=== PATIENT | male | born 1945 | race Caucasian/White ===

== ENCOUNTER 2017-10-11 11:28 | Inpatient (IN) | payer MEDICARE, OTHER ==
[2017-10-11 12:04] LABS: AADO2 Arterial 42.6 mmHg (7.0-24.0); Allen Test ACCEPTAB; Arterial Base Excess 15.5 mmol/L (-3.0-3); Arterial Blood Gas Oxygen Sat 93.8 mmHG (95.0-100.0); Arterial Fraction of Oxyhgb 92.6 % (93.0-99.0); Arterial HCO3 44.7 mmol/L (22.0-26.0); Arterial MetHb 0.3 % (0.0-1.5); Arterial pCO2 83.2 mmhg (35-45); Blood Gas IEPAP 20/5; Blood Gas PS 15; MODE MASK - BIPAP; Site Left Radial
[2017-10-11 12:10] LABS: HEMATOCRIT 35.9 % (42.0-52.0); HEMOGLOBIN 10.8 g/dl (14.0-18.0); MEAN CORPUSCULAR HEMOGLOBIN 30.5 pg (29.0-33.0); MEAN CORPUSCULAR HGB CONC 30.1 g/dl (32.0-37.0); MEAN CORPUSCULAR VOLUME 101.4 fl (82.0-101.0); MEAN PLATELET VOLUME 10.9 fl (7.4-10.4); PLATELET COUNT 152 10^3/UL (140-415); POSITIVE DIFF @See below; RED BLOOD COUNT 3.54 10^6/ul (4.70-6.10); RED CELL DISTRIBUTION WIDTH 15.7 % (11.5-14.5)
[2017-10-11 12:10] LABS: WHITE BLOOD COUNT 8.1 10^3/ul (4.8-10.8)
[2017-10-11 12:19] LABS: ADD MAN DIFF? YES
[2017-10-11] MEDS: SODIUM CHLORIDE 0.9% 1L BAG IV* (12:32)
[2017-10-11 12:47] LABS: ANISOCYTOSIS 2+ (0-0); EOSINOPHILS % (M) 5 % (0-7); LYMPHOCYTES #M 1.2 10^3/ul (0.8-2.9); LYMPHOCYTES % (M) 16 % (15-51); PLATELET ESTIMATE NORMAL; SEGMENTED NEUTROPHILS (M) % 79 % (39-77); SMUDGE%M 1 % (0-0)
[2017-10-11] MEDS: HYDROCODONE/APAP (5/325) TAB PO ×2 (13:03→20:56)
[2017-10-11 13:09] LABS: ALANINE AMINOTRANSFERASE 32 IU/L (13-69); ALBUMIN 3.8 g/dl (3.3-4.9); ALBUMIN/GLOBULIN RATIO 1.11; ALKALINE PHOSPHATASE 75 IU/L (42-121); ASPARTATE AMINO TRANSFERASE 29 IU/L (15-46); BILIRUBIN,INDIRECT 0.3 mg/dl (0-1.1); BILIRUBIN,TOTAL 0.3 mg/dl (0.2-1.3); BLOOD UREA NITROGEN 44 mg/dl (7-20); CALCIUM 9.5 mg/dl (8.4-10.2); CHLORIDE 88 mmol/L (97-110); CREATININE 1.55 mg/dl (0.61-1.24); GLUCOSE 121 mg/dl (70-220); LIPASE 105 U/L (23-300); POTASSIUM 4.6 mmol/L (3.5-5.1); SODIUM 142 mmol/L (135-144); TOTAL PROTEIN 7.2 g/dl (6.1-8.1)
[2017-10-11 13:21] LABS: ANION GAP 15 (8-16); CARBON DIOXIDE 44 mmol/L (21-31)
[2017-10-11 13:29] LABS: LACTIC ACID 1.8 mmol/L (0.5-2.0)
[2017-10-11 13:35] LABS: B-TYPE NATRIURETIC PEPTIDE 393 PG/ML (0-125)
[2017-10-11 13:36] LABS: TROPONIN-I 0.834 ng/ml (0.00-0.12)
[2017-10-11] MEDS: ASPIRIN 81 MG TAB PO (13:52)
[2017-10-11] MEDS ORDERED: NITROGLYCERIN (SL) 0.4 MG TAB SL (16:00)
[2017-10-11] MEDS ORDERED: NACL 0.9% 3 ML SYG IV (16:00)
[2017-10-11] MEDS ORDERED: NORepinephrine 8MG/250 ML (PMX 250 ML (16:43)
[2017-10-11] MEDS: NORepinephrine 8MG/250 ML (PMX 250 ML IV (16:56)
[2017-10-11 17:30] LABS: LACTIC ACID 1.2 mmol/L (0.5-2.0)
[2017-10-11 17:30] LABS: CREATINE KINASE 94 IU/L (23-200)
[2017-10-11 17:43] LABS: CK-MB 8.46 ng/ml (0.0-2.4)
[2017-10-11] MEDS: SOD CHLORIDE 0.9% 1,000 ML IV (17:58)
[2017-10-11 18:00] LABS: ADD UMIC YES; UR ASCORBIC ACID NEGATIVE (NEGATIVE); UR BACTERIA MANY /HPF (NONE SEEN); UR BILIRUBIN (Dip) 1+ mg/dL (NEGATIVE); UR BLOOD (Dip) 3+ mg/dL (NEGATIVE); UR CLARITY CLOUDY (CLEAR); UR COLOR AMBER (YELLOW); UR GLUCOSE (Dip) NEGATIVE (NEGATIVE); UR KETONES (Dip) NEGATIVE (NEGATIVE); UR LEUKOCYTE ESTERASE (Dip) 3+ Leu/ul (NEGATIVE); UR NITRITE (Dip) NEGATIVE (NEGATIVE); UR RBC > 182 /HPF (0-5); UR SPECIFIC GRAVITY (Dip) 1.019 (1.003-1.030); UR TOTAL PROTEIN (Dip) 1+ mg/dl (NEGATIVE); UR UROBILINOGEN (Dip) 2+ mg/dL (NEGATIVE); UR WBC > 182 /HPF (0-5)
[2017-10-11] MEDS ORDERED: LEVOFLOXACIN 750MG/D5W (PMX) 150 ML IVPB (18:16)
[2017-10-11] MEDS: LEVOFLOXACIN 750MG/D5W (PMX) 150 ML IVPB (18:17)
[2017-10-11] MEDS: HEPARIN 5,000 UNIT/0.5 ML VIAL SC (20:40)
[2017-10-11] MEDS: LACTATED RINGER'S 500 ML IV (22:00)
[2017-10-11 22:22] LABS: CREATINE KINASE 108 IU/L (23-200)
[2017-10-11 22:30] LABS: LACTIC ACID 1.5 mmol/L (0.5-2.0)
[2017-10-11 22:35] LABS: CK INDEX 9.8
[2017-10-11] MEDS: PIPER-TAZO 3.375 GM IV (PMX) 100 ML IVPB (23:20)
[2017-10-12] MEDS: ZOLPIDEM 5 MG TAB PO ×2 (00:31→22:30)
[2017-10-12] MEDS: PANTOPRAZOLE (EC) 40 MG TAB PO (06:25)
[2017-10-12] MEDS: SOD CHLORIDE 0.9% 1,000 ML IV ×2 (06:30→17:35)
[2017-10-12 07:44] LABS: Allen Test ACCEPTAB; Arterial Base Excess 10.2 mmol/L (-3.0-3); Arterial Blood Gas Oxygen Sat 96.7 mmHG (95.0-100.0); Arterial COHb 0.5 % (0.0-3.0); Arterial Fraction of Oxyhgb 96.1 % (93.0-99.0); Arterial HCO3 38.9 mmol/L (22.0-26.0); Arterial MetHb 0.1 % (0.0-1.5); Arterial Total Hemglobin 10.9 g/dl (12.0-18.0); Arterial pCO2 79.3 mmhg (35-45); Blood Gas IEPAP 16/6; MODE MASK - BIPAP; Site Left Radial
[2017-10-12] MEDS: HEPARIN 5,000 UNIT/0.5 ML VIAL SC ×2 (09:01→22:40)
[2017-10-12] MEDS: ASPIRIN 81 MG TAB PO (09:01)
[2017-10-12 10:23] LABS: ADD MAN DIFF? NO
[2017-10-12 10:28] LABS: ABNORMAL IP MESSAGE 1; EOSINOPHILS # 0.2 10^3/ul (0.0-0.5); EOSINOPHILS % 3.8 % (0.0-7.0); HEMATOCRIT 32.8 % (42.0-52.0); HEMOGLOBIN 9.8 g/dl (14.0-18.0); LYMPHOCYTES # 0.6 10^3/ul (0.8-2.9); LYMPHOCYTES % 11.8 % (15.0-51.0); MEAN CORPUSCULAR HEMOGLOBIN 30.4 pg (29.0-33.0); MEAN CORPUSCULAR HGB CONC 29.9 g/dl (32.0-37.0); MEAN CORPUSCULAR VOLUME 101.9 fl (82.0-101.0); MEAN PLATELET VOLUME 10.8 fl (7.4-10.4); MONOCYTE # 0.4 10^3/ul (0.3-0.9); NEUTROPHIL # 3.8 10^3/ul (1.6-7.5); NEUTROPHILS % 77.2 % (39.0-77.0); PLATELET COUNT 115 10^3/UL (140-415); POSITIVE DIFF @See below; RED BLOOD COUNT 3.22 10^6/ul (4.70-6.10); RED CELL DISTRIBUTION WIDTH 15.6 % (11.5-14.5)
[2017-10-12 12:13] LABS: ALANINE AMINOTRANSFERASE 51 IU/L (13-69); ALBUMIN 3.1 g/dl (3.3-4.9); ALBUMIN/GLOBULIN RATIO 1.06; ALKALINE PHOSPHATASE 75 IU/L (42-121); ASPARTATE AMINO TRANSFERASE 48 IU/L (15-46); BILIRUBIN,INDIRECT 0.1 mg/dl (0-1.1); BILIRUBIN,TOTAL 0.1 mg/dl (0.2-1.3); BLOOD UREA NITROGEN 33 mg/dl (7-20); CALCIUM 8.7 mg/dl (8.4-10.2); CHLORIDE 97 mmol/L (97-110); CREATININE 0.76 mg/dl (0.61-1.24); GLUCOSE 91 mg/dl (70-220); POTASSIUM 4.2 mmol/L (3.5-5.1); SODIUM 142 mmol/L (135-144)
[2017-10-12 12:20] LABS: ANION GAP 9 (8-16)
[2017-10-12 12:22] LABS: CARBON DIOXIDE 40 mmol/L (21-31)
[2017-10-12] MEDS: HYDROCODONE/APAP (5/325) TAB PO (17:34)
[2017-10-12] MEDS: LEVOFLOXACIN 500MG/D5W (PMX) 100 ML IVPB (17:34)
[2017-10-12] MEDS: ACETAMINOPHEN 325 MG TAB PO (22:28)
[2017-10-12] MEDS: ATORVASTATIN 40 MG TAB PO (22:30)
[2017-10-12] MEDS: VANCOMYCIN 2 GM in DEXTROSE 5% 500 ML IVPB (23:50)
[2017-10-12] MEDS ORDERED: VANCOMYCIN IV PER PHARMACY XX (23:59)
[2017-10-13] MEDS: HYDROCODONE/APAP (5/325) TAB PO ×4 (00:37→20:36)
[2017-10-13 05:23] LABS: Allen Test ACCEPTAB; Arterial Base Excess 14.4 mmol/L (-3.0-3); Arterial Blood Gas Oxygen Sat 97.3 mmHG (95.0-100.0); Arterial COHb 0.5 % (0.0-3.0); Arterial Fraction of Oxyhgb 96.8 % (93.0-99.0); Arterial HCO3 41.4 mmol/L (22.0-26.0); Arterial MetHb 0 % (0.0-1.5); Arterial Total Hemglobin 11.3 g/dl (12.0-18.0); Arterial pCO2 65.2 mmhg (35-45); Blood Gas IEPAP 16/6; Blood Gas PS 10; MODE MASK - BIPAP; Site Right Radial
[2017-10-13] MEDS: PANTOPRAZOLE (EC) 40 MG TAB PO (06:55)
[2017-10-13 07:45] LABS: ADD MAN DIFF? NO
[2017-10-13 07:53] LABS: BASOPHILS % 0.2 % (0.0-2.0); EOSINOPHILS # 0.2 10^3/ul (0.0-0.5); EOSINOPHILS % 4.7 % (0.0-7.0); HEMATOCRIT 30.9 % (42.0-52.0); HEMOGLOBIN 9.5 g/dl (14.0-18.0); LYMPHOCYTES # 0.8 10^3/ul (0.8-2.9); LYMPHOCYTES % 18.1 % (15.0-51.0); MEAN CORPUSCULAR HEMOGLOBIN 30.6 pg (29.0-33.0); MEAN CORPUSCULAR HGB CONC 30.7 g/dl (32.0-37.0); MEAN CORPUSCULAR VOLUME 99.7 fl (82.0-101.0); MEAN PLATELET VOLUME 10.8 fl (7.4-10.4); MONOCYTE # 0.4 10^3/ul (0.3-0.9); MONOCYTES % 8.9 % (0.0-11.0); NEUTROPHIL # 2.9 10^3/ul (1.6-7.5); NEUTROPHILS % 67.6 % (39.0-77.0); PLATELET COUNT 106 10^3/UL (140-415); RED CELL DISTRIBUTION WIDTH 15.5 % (11.5-14.5)
[2017-10-13 07:53] LABS: WHITE BLOOD COUNT 4.3 10^3/ul (4.8-10.8)
[2017-10-13 08:19] LABS: ALANINE AMINOTRANSFERASE 48 IU/L (13-69); ALBUMIN 2.9 g/dl (3.3-4.9); ALBUMIN/GLOBULIN RATIO 1.26; ALKALINE PHOSPHATASE 68 IU/L (42-121); ANION GAP 8 (8-16); ASPARTATE AMINO TRANSFERASE 30 IU/L (15-46); BILIRUBIN,INDIRECT 0.2 mg/dl (0-1.1); BILIRUBIN,TOTAL 0.2 mg/dl (0.2-1.3); BLOOD UREA NITROGEN 24 mg/dl (7-20); CALCIUM 8.6 mg/dl (8.4-10.2); CARBON DIOXIDE 39 mmol/L (21-31); CHLORIDE 98 mmol/L (97-110); CREATININE 0.62 mg/dl (0.61-1.24); GLUCOSE 85 mg/dl (70-220); POTASSIUM 4.1 mmol/L (3.5-5.1); SODIUM 141 mmol/L (135-144); TOTAL PROTEIN 5.2 g/dl (6.1-8.1)
[2017-10-13] MEDS: ASPIRIN 81 MG TAB PO (09:25)
[2017-10-13] MEDS: HEPARIN 5,000 UNIT/0.5 ML VIAL SC ×2 (09:28→20:48)
[2017-10-13] MEDS: SOD CHLORIDE 0.9% 1,000 ML IV ×2 (09:31→20:00)
[2017-10-13] MEDS: ASCORBIC ACID 500 MG TAB PO ×2 (12:11→20:36)
[2017-10-13] MEDS: MULTIVIT/CA CARB/B CMPLX/FA TAB PO (12:11)
[2017-10-13] MEDS: ERTAPENEM SODIUM 1 GM in SOD CHLORIDE 0.9% 100 ML IVPB (12:11)
[2017-10-13] MEDS: ZINC SULFATE 220 MG CAP PO (12:14)
[2017-10-13] MEDS: VANCOMYCIN 2 GM in DEXTROSE 5% 500 ML IVPB (12:42)
[2017-10-13] MEDS: ATORVASTATIN 40 MG TAB PO (20:36)
[2017-10-13] MEDS: METOPROLOL 25 MG TAB PO (20:38)
[2017-10-13] MEDS: ZOLPIDEM 5 MG TAB PO (22:58)
[2017-10-13] MEDS: ACETAMINOPHEN 325 MG TAB PO (22:58)
[2017-10-14] MEDS: VANCOMYCIN 2 GM in DEXTROSE 5% 500 ML IVPB (00:20)
[2017-10-14] MEDS: SOD CHLORIDE 0.9% 1,000 ML IV ×2 (01:34→21:00)
[2017-10-14] MEDS: HYDROCODONE/APAP (5/325) TAB PO ×4 (04:13→23:10)
[2017-10-14 05:16] LABS: AADO2 Arterial 15.7 mmHg (7.0-24.0); Allen Test ACCEPTAB; Arterial COHb 0.4 % (0.0-3.0); Arterial Fraction of Oxyhgb 96.5 % (93.0-99.0); Arterial HCO3 40.1 mmol/L (22.0-26.0); Arterial MetHb 0.1 % (0.0-1.5); Arterial Total Hemglobin 10.9 g/dl (12.0-18.0); Arterial pCO2 73.9 mmhg (35-45); MODE NASAL CANNULA; Site Right Radial
[2017-10-14] MEDS: PANTOPRAZOLE (EC) 40 MG TAB PO (06:39)
[2017-10-14] MEDS: ASCORBIC ACID 500 MG TAB PO ×2 (08:15→22:00)
[2017-10-14] MEDS: ZINC SULFATE 220 MG CAP PO (08:15)
[2017-10-14] MEDS: ASPIRIN 81 MG TAB PO (08:15)
[2017-10-14] MEDS: MULTIVIT/CA CARB/B CMPLX/FA TAB PO (08:16)
[2017-10-14] MEDS: METOPROLOL 25 MG TAB PO (08:17)
[2017-10-14] MEDS: HEPARIN 5,000 UNIT/0.5 ML VIAL SC ×2 (08:18→22:10)
[2017-10-14 09:08] LABS: ADD MAN DIFF? NO
[2017-10-14 09:10] LABS: BASOPHILS % 0.4 % (0.0-2.0); EOSINOPHILS # 0.2 10^3/ul (0.0-0.5); EOSINOPHILS % 4.2 % (0.0-7.0); HEMATOCRIT 33.7 % (42.0-52.0); HEMOGLOBIN 10.4 g/dl (14.0-18.0); LYMPHOCYTES # 0.7 10^3/ul (0.8-2.9); LYMPHOCYTES % 14.5 % (15.0-51.0); MEAN CORPUSCULAR HEMOGLOBIN 30.7 pg (29.0-33.0); MEAN CORPUSCULAR HGB CONC 30.9 g/dl (32.0-37.0); MEAN CORPUSCULAR VOLUME 99.4 fl (82.0-101.0); MEAN PLATELET VOLUME 10.4 fl (7.4-10.4); MONOCYTE # 0.4 10^3/ul (0.3-0.9); MONOCYTES % 9.2 % (0.0-11.0); NEUTROPHIL # 3.2 10^3/ul (1.6-7.5); NEUTROPHILS % 71.3 % (39.0-77.0); PLATELET COUNT 111 10^3/UL (140-415); RED BLOOD COUNT 3.39 10^6/ul (4.70-6.10)
[2017-10-14 09:10] LABS: WHITE BLOOD COUNT 4.5 10^3/ul (4.8-10.8)
[2017-10-14 09:35] LABS: ALANINE AMINOTRANSFERASE 39 IU/L (13-69); ALBUMIN 3.2 g/dl (3.3-4.9); ALBUMIN/GLOBULIN RATIO 1.06; ALKALINE PHOSPHATASE 76 IU/L (42-121); ASPARTATE AMINO TRANSFERASE 26 IU/L (15-46); BILIRUBIN,INDIRECT 0.2 mg/dl (0-1.1); BILIRUBIN,TOTAL 0.2 mg/dl (0.2-1.3); BLOOD UREA NITROGEN 13 mg/dl (7-20); CALCIUM 9.3 mg/dl (8.4-10.2); CHLORIDE 96 mmol/L (97-110); CREATININE 0.58 mg/dl (0.61-1.24); GLUCOSE 94 mg/dl (70-220); POTASSIUM 3.7 mmol/L (3.5-5.1); SODIUM 141 mmol/L (135-144); TOTAL PROTEIN 6.2 g/dl (6.1-8.1)
[2017-10-14 09:36] LABS: ANION GAP 9 (8-16)
[2017-10-14 09:45] LABS: CARBON DIOXIDE 39 mmol/L (21-31)
[2017-10-14 09:53] LABS: TROPONIN-I 0.623 ng/ml (0.00-0.12)
[2017-10-14] MEDS ORDERED: LOSARTAN 25 MG TAB PO (11:30)
[2017-10-14] MEDS: ERTAPENEM SODIUM 1 GM in SOD CHLORIDE 0.9% 100 ML IVPB (12:07)
[2017-10-14 12:15] LABS: Allen Test ACCEPTAB; Arterial Base Excess 12.4 mmol/L (-3.0-3); Arterial Blood Gas Oxygen Sat 99.1 mmHG (95.0-100.0); Arterial COHb 0.4 % (0.0-3.0); Arterial Fraction of Oxyhgb 98.5 % (93.0-99.0); Arterial HCO3 40.3 mmol/L (22.0-26.0); Arterial MetHb 0.2 % (0.0-1.5); Arterial Total Hemglobin 11.6 g/dl (12.0-18.0); Arterial pCO2 70.9 mmhg (35-45); MODE NASAL CANNULA; Site Left Radial
[2017-10-14] MEDS: SALMETEROL/FLUTICASONE 250/50 INHA INH ×2 (12:20→21:57)
[2017-10-14] MEDS: TIOTROPIUM 18 MCG CAPSULE INHA DEV INH (12:20)
[2017-10-14 12:24] LABS: VANCOMYCIN,TROUGH 21.1 ug/ml (10.0-20.0)
[2017-10-14] MEDS: DOXAZOSIN 1 MG TAB PO (12:26)
[2017-10-14] MEDS: LOSARTAN 50 MG TAB PO (12:30)
[2017-10-14] MEDS ORDERED: METOPROLOL 50 MG TAB PO (12:30)
[2017-10-14] MEDS: ACETAMINOPHEN 325 MG TAB PO (14:02)
[2017-10-14] MEDS: VANCOMYCIN 1.5 GM in DEXTROSE 5% 500 ML IVPB (18:48)
[2017-10-14] MEDS: METOPROLOL 50 MG TAB PO (21:00)
[2017-10-14] MEDS: DOXAZOSIN 2 MG TAB PO (21:00)
[2017-10-14] MEDS: NYSTATIN 30 GM POWDER BTL TOP (21:57)
[2017-10-14] MEDS: MONTELUKAST 10 MG TAB PO (21:59)
[2017-10-14] MEDS: ATORVASTATIN 40 MG TAB PO (22:00)
[2017-10-15] MEDS: LOSARTAN 50 MG TAB PO ×3 (01:13→21:54)
[2017-10-15] MEDS: SOD CHLORIDE 0.9% 1,000 ML IV ×2 (01:58→22:00)
[2017-10-15] MEDS: ACETAMINOPHEN 325 MG TAB PO ×3 (02:53→16:24)
[2017-10-15] MEDS: PANTOPRAZOLE (EC) 40 MG TAB PO (05:57)
[2017-10-15] MEDS: HYDROCODONE/APAP (5/325) TAB PO ×3 (05:58→21:53)
[2017-10-15] MEDS: VANCOMYCIN 1.5 GM in DEXTROSE 5% 500 ML IVPB ×2 (06:00→21:55)
[2017-10-15 08:38] LABS: ADD MAN DIFF? NO
[2017-10-15 08:55] LABS: ABNORMAL IP MESSAGE 1; BASOPHILS % 0.2 % (0.0-2.0); EOSINOPHILS # 0.2 10^3/ul (0.0-0.5); EOSINOPHILS % 3.9 % (0.0-7.0); HEMATOCRIT 33.4 % (42.0-52.0); HEMOGLOBIN 10.2 g/dl (14.0-18.0); LYMPHOCYTES # 0.5 10^3/ul (0.8-2.9); LYMPHOCYTES % 11.4 % (15.0-51.0); MEAN CORPUSCULAR HEMOGLOBIN 29.8 pg (29.0-33.0); MEAN CORPUSCULAR HGB CONC 30.5 g/dl (32.0-37.0); MEAN CORPUSCULAR VOLUME 97.7 fl (82.0-101.0); MEAN PLATELET VOLUME 11.1 fl (7.4-10.4); MONOCYTE # 0.5 10^3/ul (0.3-0.9); MONOCYTES % 10.1 % (0.0-11.0); NEUTROPHIL # 3.4 10^3/ul (1.6-7.5); NEUTROPHILS % 74.2 % (39.0-77.0); PLATELET COUNT 121 10^3/UL (140-415); POSITIVE DIFF @See below; RED BLOOD COUNT 3.42 10^6/ul (4.70-6.10); RED CELL DISTRIBUTION WIDTH 14.5 % (11.5-14.5)
[2017-10-15 08:55] LABS: WHITE BLOOD COUNT 4.6 10^3/ul (4.8-10.8)
[2017-10-15] MEDS: NYSTATIN 30 GM POWDER BTL TOP ×2 (09:00→21:00)
[2017-10-15 09:16] LABS: TROPONIN-I 0.448 ng/ml (0.00-0.12)
[2017-10-15 09:29] LABS: ALANINE AMINOTRANSFERASE 40 IU/L (13-69); ALBUMIN 2.8 g/dl (3.3-4.9); ALBUMIN/GLOBULIN RATIO 1.07; ALKALINE PHOSPHATASE 69 IU/L (42-121); ASPARTATE AMINO TRANSFERASE 22 IU/L (15-46); BILIRUBIN,INDIRECT 0.2 mg/dl (0-1.1); BILIRUBIN,TOTAL 0.2 mg/dl (0.2-1.3); BLOOD UREA NITROGEN 9 mg/dl (7-20); CALCIUM 9.1 mg/dl (8.4-10.2); CHLORIDE 97 mmol/L (97-110); GLUCOSE 109 mg/dl (70-220); POTASSIUM 3.3 mmol/L (3.5-5.1); SODIUM 142 mmol/L (135-144); TOTAL PROTEIN 5.4 g/dl (6.1-8.1)
[2017-10-15 09:35] LABS: ANION GAP 7 (8-16)
[2017-10-15 09:45] LABS: CARBON DIOXIDE 41 mmol/L (21-31)
[2017-10-15] MEDS: SALMETEROL/FLUTICASONE 250/50 INHA INH ×2 (10:43→21:52)
[2017-10-15] MEDS: ASCORBIC ACID 500 MG TAB PO ×2 (10:43→21:54)
[2017-10-15] MEDS: ASPIRIN 81 MG TAB PO (10:43)
[2017-10-15] MEDS: ZINC SULFATE 220 MG CAP PO (10:44)
[2017-10-15] MEDS: METOPROLOL 50 MG TAB PO ×2 (10:44→21:53)
[2017-10-15] MEDS: TIOTROPIUM 18 MCG CAPSULE INHA DEV INH (10:44)
[2017-10-15] MEDS: MULTIVIT/CA CARB/B CMPLX/FA TAB PO (10:45)
[2017-10-15] MEDS: HEPARIN 5,000 UNIT/0.5 ML VIAL SC ×2 (10:53→22:05)
[2017-10-15] MEDS: ERTAPENEM SODIUM 1 GM in SOD CHLORIDE 0.9% 100 ML IVPB (11:47)
[2017-10-15] MEDS: hydrALAzine 20 MG INJ IV ×2 (11:47→15:58)
[2017-10-15] MEDS: POTASSIUM CHLORIDE (SR) 20 MEQ TAB PO (21:53)
[2017-10-15] MEDS: ATORVASTATIN 40 MG TAB PO (21:53)
[2017-10-15] MEDS: DOXAZOSIN 4 MG TAB PO (21:54)
[2017-10-15] MEDS: MONTELUKAST 10 MG TAB PO (21:54)
[2017-10-15] MEDS: ZOLPIDEM 5 MG TAB PO (22:38)
[2017-10-16 05:51] LABS: Allen Test ACCEPTAB; Arterial Base Excess 13.1 mmol/L (-3.0-3); Arterial Blood Gas Oxygen Sat 98.6 mmHG (95.0-100.0); Arterial COHb 0.3 % (0.0-3.0); Arterial Fraction of Oxyhgb 98.2 % (93.0-99.0); Arterial HCO3 40.2 mmol/L (22.0-26.0); Arterial MetHb 0.1 % (0.0-1.5); Arterial Total Hemglobin 10.7 g/dl (12.0-18.0); Arterial pCO2 66.6 mmhg (35-45); MODE NASAL CANNULA; Site Right Radial
[2017-10-16] MEDS: PANTOPRAZOLE (EC) 40 MG TAB PO (06:12)
[2017-10-16] MEDS: VANCOMYCIN 1.5 GM in DEXTROSE 5% 500 ML IVPB ×2 (06:12→18:54)
[2017-10-16 08:11] LABS: WHITE BLOOD COUNT 6.6 10^3/ul (4.8-10.8)
[2017-10-16 08:11] LABS: ABNORMAL IP MESSAGE 1; HEMATOCRIT 31.4 % (42.0-52.0); HEMOGLOBIN 9.8 g/dl (14.0-18.0); MEAN CORPUSCULAR HEMOGLOBIN 30.3 pg (29.0-33.0); MEAN CORPUSCULAR HGB CONC 31.2 g/dl (32.0-37.0); MEAN CORPUSCULAR VOLUME 97.2 fl (82.0-101.0); MEAN PLATELET VOLUME 10.8 fl (7.4-10.4); PLATELET COUNT 120 10^3/UL (140-415); POSITIVE DIFF @See below; RED BLOOD COUNT 3.23 10^6/ul (4.70-6.10); RED CELL DISTRIBUTION WIDTH 14.9 % (11.5-14.5)
[2017-10-16 08:16] LABS: ADD MAN DIFF? YES
[2017-10-16 08:44] LABS: BLOOD UREA NITROGEN 9 mg/dl (7-20); CALCIUM 9.2 mg/dl (8.4-10.2); CHLORIDE 96 mmol/L (97-110); CREATININE 0.57 mg/dl (0.61-1.24); GLUCOSE 90 mg/dl (70-220); POTASSIUM 3.4 mmol/L (3.5-5.1); SODIUM 140 mmol/L (135-144)
[2017-10-16 08:50] LABS: ANION GAP 8 (8-16)
[2017-10-16] MEDS: TIOTROPIUM 18 MCG CAPSULE INHA DEV INH (08:50)
[2017-10-16] MEDS: ASPIRIN 81 MG TAB PO (08:51)
[2017-10-16] MEDS: CLOPIDOGREL 75 MG TAB PO (08:51)
[2017-10-16] MEDS: ASCORBIC ACID 500 MG TAB PO ×2 (08:51→21:07)
[2017-10-16] MEDS: ZINC SULFATE 220 MG CAP PO (08:51)
[2017-10-16] MEDS: MULTIVIT/CA CARB/B CMPLX/FA TAB PO (08:51)
[2017-10-16 08:52] LABS: CARBON DIOXIDE 39 mmol/L (21-31)
[2017-10-16] MEDS: LOSARTAN 50 MG TAB PO ×2 (08:52→21:06)
[2017-10-16] MEDS: NYSTATIN 30 GM POWDER BTL TOP ×2 (08:53→21:17)
[2017-10-16] MEDS: METOPROLOL 50 MG TAB PO ×2 (08:53→21:06)
[2017-10-16] MEDS: SALMETEROL/FLUTICASONE 250/50 INHA INH ×2 (08:53→21:03)
[2017-10-16 09:01] LABS: CHOLESTEROL 131 mg/dl (100-200)
[2017-10-16 09:01] LABS: CHOL/HDL RATIO 3.5 RATIO; HDL CHOLESTEROL 37 mg/dl (31-75); LDL CHOLESTEROL,CALCULATED 75 mg/dl; TRIGLYCERIDES 94 mg/dl (0-149)
[2017-10-16] MEDS: HEPARIN 5,000 UNIT/0.5 ML VIAL SC ×2 (09:05→21:10)
[2017-10-16 09:06] LABS: VANCOMYCIN,TROUGH 19.9 ug/ml (10.0-20.0)
[2017-10-16 09:55] LABS: BAND NEUTROPHILS % (M) 1 % (0-4); EOSINOPHILS % (M) 2 % (0-7); GIANT THROMBO% (M) 2 % (0-0); LYMPHOCYTES #M 0.7 10^3/ul (0.8-2.9); LYMPHOCYTES % (M) 12 % (15-51); MONOCYTE #M 0.3 10^3/ul (0.3-0.9); MONOCYTES % (M) 5 % (0-11); PLATELET ESTIMATE DECREASED; POLYCHROMASIA 1+ (0-0); SEG NEUT #M 5.3 10^3/ul (1.6-7.5); SEGMENTED NEUTROPHILS (M) % 80 % (39-77); SMUDGE%M 8 % (0-0)
[2017-10-16] MEDS: SOD CHLORIDE 0.9% 1,000 ML IV ×2 (11:34→23:00)
[2017-10-16] MEDS: ERTAPENEM SODIUM 1 GM in SOD CHLORIDE 0.9% 100 ML IVPB (13:03)
[2017-10-16] MEDS: ACETAMINOPHEN 325 MG TAB PO (15:41)
[2017-10-16] MEDS: HYDROCODONE/APAP (5/325) TAB PO (16:45)
[2017-10-16] MEDS ORDERED: VANCOMYCIN 1 GM 250 ML IVPB (18:00)
[2017-10-16] MEDS: MONTELUKAST 10 MG TAB PO (21:04)
[2017-10-16] MEDS: DOXAZOSIN 2 MG TAB PO (21:04)
[2017-10-16] MEDS: ATORVASTATIN 40 MG TAB PO (21:06)
[2017-10-16] MEDS: ZOLPIDEM 5 MG TAB PO (22:42)
[2017-10-17] MEDS: PANTOPRAZOLE (EC) 40 MG TAB PO (05:41)
[2017-10-17] MEDS: VANCOMYCIN 1.5 GM in DEXTROSE 5% 500 ML IVPB ×2 (06:04→18:30)
[2017-10-17 06:10] LABS: ADD MAN DIFF? NO
[2017-10-17 06:12] LABS: WHITE BLOOD COUNT 5.4 10^3/ul (4.8-10.8)
[2017-10-17 06:12] LABS: ABNORMAL IP MESSAGE 1; BASOPHILS % 0.4 % (0.0-2.0); EOSINOPHILS # 0.1 10^3/ul (0.0-0.5); EOSINOPHILS % 2.4 % (0.0-7.0); HEMATOCRIT 32.1 % (42.0-52.0); HEMOGLOBIN 10.2 g/dl (14.0-18.0); LYMPHOCYTES # 0.6 10^3/ul (0.8-2.9); LYMPHOCYTES % 10.8 % (15.0-51.0); MEAN CORPUSCULAR HEMOGLOBIN 30.2 pg (29.0-33.0); MEAN CORPUSCULAR HGB CONC 31.8 g/dl (32.0-37.0); MEAN PLATELET VOLUME 10.7 fl (7.4-10.4); MONOCYTE # 0.5 10^3/ul (0.3-0.9); NEUTROPHIL # 4.1 10^3/ul (1.6-7.5); NEUTROPHILS % 76.2 % (39.0-77.0); PLATELET COUNT 128 10^3/UL (140-415); POSITIVE DIFF @See below; RED BLOOD COUNT 3.38 10^6/ul (4.70-6.10)
[2017-10-17 06:43] LABS: ALANINE AMINOTRANSFERASE 38 IU/L (13-69); ALBUMIN 3.1 g/dl (3.3-4.9); ALBUMIN/GLOBULIN RATIO 1.06; ALKALINE PHOSPHATASE 77 IU/L (42-121); ANION GAP 9 (8-16); ASPARTATE AMINO TRANSFERASE 21 IU/L (15-46); BILIRUBIN,INDIRECT 0.2 mg/dl (0-1.1); BILIRUBIN,TOTAL 0.2 mg/dl (0.2-1.3); BLOOD UREA NITROGEN 7 mg/dl (7-20); CALCIUM 9.2 mg/dl (8.4-10.2); CARBON DIOXIDE 38 mmol/L (21-31); CHLORIDE 98 mmol/L (97-110); CREATININE 0.53 mg/dl (0.61-1.24); GLUCOSE 95 mg/dl (70-220); POTASSIUM 3.3 mmol/L (3.5-5.1); SODIUM 142 mmol/L (135-144)
[2017-10-17] MEDS: ASCORBIC ACID 500 MG TAB PO ×2 (09:29→20:44)
[2017-10-17] MEDS: SALMETEROL/FLUTICASONE 250/50 INHA INH ×2 (09:29→20:43)
[2017-10-17] MEDS: LOSARTAN 50 MG TAB PO ×2 (09:30→20:47)
[2017-10-17] MEDS: TIOTROPIUM 18 MCG CAPSULE INHA DEV INH (09:30)
[2017-10-17] MEDS: ASPIRIN 81 MG TAB PO (09:30)
[2017-10-17] MEDS: METOPROLOL 50 MG TAB PO ×2 (09:30→20:47)
[2017-10-17] MEDS: MULTIVIT/CA CARB/B CMPLX/FA TAB PO (09:30)
[2017-10-17] MEDS: CLOPIDOGREL 75 MG TAB PO (09:30)
[2017-10-17] MEDS: ZINC SULFATE 220 MG CAP PO (09:30)
[2017-10-17] MEDS: HEPARIN 5,000 UNIT/0.5 ML VIAL SC ×2 (09:31→20:49)
[2017-10-17] MEDS: NYSTATIN 30 GM POWDER BTL TOP ×2 (09:31→20:50)
[2017-10-17] MEDS: HYDROCODONE/APAP (5/325) TAB PO ×2 (09:38→22:12)
[2017-10-17] MEDS: ERTAPENEM SODIUM 1 GM in SOD CHLORIDE 0.9% 100 ML IVPB (12:26)
[2017-10-17] MEDS: ACETAMINOPHEN 325 MG TAB PO (12:32)
[2017-10-17] MEDS: hydrALAzine 20 MG INJ IV (15:41)
[2017-10-17] MEDS: SOD CHLORIDE 0.9% 1,000 ML IV (17:32)
[2017-10-17] MEDS: POTASSIUM CHLORIDE (SR) 20 MEQ TAB PO ×2 (18:13→20:45)
[2017-10-17] MEDS: CHLORTHALIDONE 25 MG TAB PO (18:20)
[2017-10-17] MEDS: MONTELUKAST 10 MG TAB PO (20:44)
[2017-10-17] MEDS: ATORVASTATIN 40 MG TAB PO (20:45)
[2017-10-17] MEDS: TERBINAFINE 250 MG TAB PO (20:45)
[2017-10-17] MEDS: DOXAZOSIN 2 MG TAB PO (20:46)
[2017-10-17] MEDS: ZOLPIDEM 5 MG TAB PO (23:04)
[2017-10-18] MEDS: PANTOPRAZOLE (EC) 40 MG TAB PO (06:29)
[2017-10-18] MEDS: CHLORTHALIDONE 25 MG TAB PO (06:29)
[2017-10-18 06:57] LABS: VANCOMYCIN,TROUGH 20.1 ug/ml (10.0-20.0)
[2017-10-18 06:57] LABS: ANION GAP 9 (8-16); BLOOD UREA NITROGEN 8 mg/dl (7-20); CALCIUM 8.9 mg/dl (8.4-10.2); CARBON DIOXIDE 36 mmol/L (21-31); CHLORIDE 99 mmol/L (97-110); CREATININE 0.68 mg/dl (0.61-1.24); GLUCOSE 89 mg/dl (70-220); POTASSIUM 4.1 mmol/L (3.5-5.1); SODIUM 140 mmol/L (135-144)
[2017-10-18 06:58] LABS: AADO2 Arterial 79.1 mmHg (7.0-24.0); Arterial Base Excess 10.6 mmol/L (-3.0-3); Arterial Blood Gas Oxygen Sat 80.3 mmHG (95.0-100.0); Arterial COHb 0.5 % (0.0-3.0); Arterial Fraction of Oxyhgb 79.8 % (93.0-99.0); Arterial HCO3 36.9 mmol/L (22.0-26.0); Arterial MetHb 0.1 % (0.0-1.5); Arterial Total Hemglobin 11.3 g/dl (12.0-18.0); Arterial pCO2 58.2 mmhg (35-45); MODE NASAL CANNULA; Site Left Radial
[2017-10-18 07:42] LABS: TROPONIN-I 0.148 ng/ml (0.00-0.12)
[2017-10-18] MEDS: HEPARIN 5,000 UNIT/0.5 ML VIAL SC ×2 (09:18→21:24)
[2017-10-18] MEDS: TIOTROPIUM 18 MCG CAPSULE INHA DEV INH (09:19)
[2017-10-18] MEDS: SALMETEROL/FLUTICASONE 250/50 INHA INH ×2 (09:19→21:21)
[2017-10-18] MEDS: ASPIRIN 81 MG TAB PO (09:20)
[2017-10-18] MEDS: ZINC SULFATE 220 MG CAP PO (09:20)
[2017-10-18] MEDS: TERBINAFINE 250 MG TAB PO ×2 (09:20→21:23)
[2017-10-18] MEDS: LOSARTAN 50 MG TAB PO ×2 (09:20→21:24)
[2017-10-18] MEDS: MULTIVIT/CA CARB/B CMPLX/FA TAB PO (09:20)
[2017-10-18] MEDS: CLOPIDOGREL 75 MG TAB PO (09:21)
[2017-10-18] MEDS: METOPROLOL 50 MG TAB PO ×2 (09:21→21:25)
[2017-10-18] MEDS: NYSTATIN 30 GM POWDER BTL TOP ×2 (09:22→21:30)
[2017-10-18] MEDS: ASCORBIC ACID 500 MG TAB PO ×2 (09:25→21:25)
[2017-10-18] MEDS: ERTAPENEM SODIUM 1 GM in SOD CHLORIDE 0.9% 100 ML IVPB (11:28)
[2017-10-18] MEDS: SOD CHLORIDE 0.9% 1,000 ML IV ×2 (11:29)
[2017-10-18] MEDS: HYDROCODONE/APAP (5/325) TAB PO (13:39)
[2017-10-18] MEDS: VANCOMYCIN 1 GM 250 ML IVPB (13:39)
[2017-10-18] MEDS: ATORVASTATIN 40 MG TAB PO (21:24)
[2017-10-18] MEDS: MONTELUKAST 10 MG TAB PO (21:25)
[2017-10-18] MEDS: DOXAZOSIN 2 MG TAB PO (21:45)
[2017-10-18] MEDS: ZOLPIDEM 5 MG TAB PO (23:18)
[2017-10-19] MEDS: VANCOMYCIN 1 GM 250 ML IVPB ×2 (01:22→12:37)
[2017-10-19] MEDS: SOD CHLORIDE 0.9% 1,000 ML IV ×2 (03:54→15:37)
[2017-10-19] MEDS: PANTOPRAZOLE (EC) 40 MG TAB PO (05:16)
[2017-10-19 05:17] LABS: ADD MAN DIFF? NO
[2017-10-19] MEDS: CHLORTHALIDONE 25 MG TAB PO (05:19)
[2017-10-19 05:21] LABS: BASOPHILS % 0.4 % (0.0-2.0); EOSINOPHILS # 0.1 10^3/ul (0.0-0.5); HEMATOCRIT 34.2 % (42.0-52.0); HEMOGLOBIN 10.7 g/dl (14.0-18.0); LYMPHOCYTES # 0.6 10^3/ul (0.8-2.9); LYMPHOCYTES % 13.8 % (15.0-51.0); MEAN CORPUSCULAR HEMOGLOBIN 29.8 pg (29.0-33.0); MEAN CORPUSCULAR HGB CONC 31.3 g/dl (32.0-37.0); MEAN CORPUSCULAR VOLUME 95.3 fl (82.0-101.0); MEAN PLATELET VOLUME 10.8 fl (7.4-10.4); MONOCYTE # 0.5 10^3/ul (0.3-0.9); MONOCYTES % 10.8 % (0.0-11.0); NEUTROPHIL # 3.3 10^3/ul (1.6-7.5); NEUTROPHILS % 71.8 % (39.0-77.0); PLATELET COUNT 138 10^3/UL (140-415); RED BLOOD COUNT 3.59 10^6/ul (4.70-6.10); RED CELL DISTRIBUTION WIDTH 14.9 % (11.5-14.5)
[2017-10-19 05:21] LABS: WHITE BLOOD COUNT 4.7 10^3/ul (4.8-10.8)
[2017-10-19 06:00] LABS: BLOOD UREA NITROGEN 9 mg/dl (7-20); CALCIUM 9.3 mg/dl (8.4-10.2); CARBON DIOXIDE 39 mmol/L (21-31); CHLORIDE 98 mmol/L (97-110); CREATININE 0.65 mg/dl (0.61-1.24); GLUCOSE 96 mg/dl (70-220); SODIUM 143 mmol/L (135-144)
[2017-10-19 06:47] LABS: ANION GAP 10 (8-16)
[2017-10-19 06:55] LABS: POTASSIUM 3.8 mmol/L (3.5-5.1)
[2017-10-19] MEDS: SALMETEROL/FLUTICASONE 250/50 INHA INH ×2 (08:50→21:15)
[2017-10-19] MEDS: ASPIRIN 81 MG TAB PO (08:51)
[2017-10-19] MEDS: LOSARTAN 50 MG TAB PO ×2 (08:52→21:20)
[2017-10-19] MEDS: HEPARIN 5,000 UNIT/0.5 ML VIAL SC ×2 (08:53→21:16)
[2017-10-19] MEDS: METOPROLOL 50 MG TAB PO ×2 (08:54→21:21)
[2017-10-19] MEDS: CLOPIDOGREL 75 MG TAB PO (08:54)
[2017-10-19] MEDS: TERBINAFINE 250 MG TAB PO ×2 (08:54→21:15)
[2017-10-19] MEDS: MULTIVIT/CA CARB/B CMPLX/FA TAB PO (08:54)
[2017-10-19] MEDS: ASCORBIC ACID 500 MG TAB PO ×2 (08:55→21:15)
[2017-10-19] MEDS: ZINC SULFATE 220 MG CAP PO (08:58)
[2017-10-19] MEDS: NYSTATIN 30 GM POWDER BTL TOP ×2 (09:03→21:16)
[2017-10-19] MEDS: HYDROCODONE/APAP (5/325) TAB PO (09:33)
[2017-10-19] MEDS: TIOTROPIUM 18 MCG CAPSULE INHA DEV INH (11:49)
[2017-10-19] MEDS: ERTAPENEM SODIUM 1 GM in SOD CHLORIDE 0.9% 100 ML IVPB (11:55)
[2017-10-19] MEDS: hydrALAzine 20 MG INJ IV (17:11)
[2017-10-19] MEDS: ATORVASTATIN 40 MG TAB PO (21:14)
[2017-10-19] MEDS: BALSAM PERU/CASTOR OIL 60 GM TUBE TOP (22:35)
[2017-10-19] MEDS: MONTELUKAST 10 MG TAB PO (22:35)
[2017-10-19] MEDS: DOXAZOSIN 2 MG TAB PO (22:36)
[2017-10-19] MEDS: ZOLPIDEM 5 MG TAB PO (22:37)
[2017-10-20] MEDS: VANCOMYCIN 1 GM 250 ML IVPB ×2 (00:28→12:18)
[2017-10-20] MEDS: SOD CHLORIDE 0.9% 1,000 ML IV ×2 (02:00→11:37)
[2017-10-20] MEDS: PANTOPRAZOLE (EC) 40 MG TAB PO (05:43)
[2017-10-20] MEDS: CHLORTHALIDONE 25 MG TAB PO (05:45)
[2017-10-20 06:49] LABS: ALANINE AMINOTRANSFERASE 36 IU/L (13-69); ALBUMIN 3.1 g/dl (3.3-4.9); ALBUMIN/GLOBULIN RATIO 1.06; ALKALINE PHOSPHATASE 69 IU/L (42-121); ASPARTATE AMINO TRANSFERASE 19 IU/L (15-46); BILIRUBIN,INDIRECT 0.3 mg/dl (0-1.1); BILIRUBIN,TOTAL 0.3 mg/dl (0.2-1.3); BLOOD UREA NITROGEN 9 mg/dl (7-20); CALCIUM 9.5 mg/dl (8.4-10.2); CHLORIDE 96 mmol/L (97-110); CREATININE 0.62 mg/dl (0.61-1.24); GLUCOSE 95 mg/dl (70-220); POTASSIUM 3.3 mmol/L (3.5-5.1); SODIUM 142 mmol/L (135-144)
[2017-10-20 07:00] LABS: ANION GAP 8 (8-16); CARBON DIOXIDE 41 mmol/L (21-31)
[2017-10-20] MEDS: POTASSIUM CHLORIDE (SR) 20 MEQ TAB PO (07:52)
[2017-10-20] MEDS: HYDROCODONE/APAP (5/325) TAB PO ×2 (07:52→14:04)
[2017-10-20] MEDS: ASCORBIC ACID 500 MG TAB PO ×2 (09:43→21:17)
[2017-10-20] MEDS: SALMETEROL/FLUTICASONE 250/50 INHA INH ×2 (09:43→21:18)
[2017-10-20] MEDS: ZINC SULFATE 220 MG CAP PO (09:44)
[2017-10-20] MEDS: LOSARTAN 50 MG TAB PO ×2 (09:44→21:16)
[2017-10-20] MEDS: CLOPIDOGREL 75 MG TAB PO (09:45)
[2017-10-20] MEDS: ESCITALOPRAM 10 MG TAB PO (09:45)
[2017-10-20] MEDS: METOPROLOL 50 MG TAB PO ×2 (09:46→21:17)
[2017-10-20] MEDS: TERBINAFINE 250 MG TAB PO ×2 (09:46→21:17)
[2017-10-20] MEDS: ASPIRIN 81 MG TAB PO (09:46)
[2017-10-20] MEDS: MULTIVIT/CA CARB/B CMPLX/FA TAB PO (09:46)
[2017-10-20] MEDS: BALSAM PERU/CASTOR OIL 60 GM TUBE TOP ×2 (09:54→21:18)
[2017-10-20] MEDS: NYSTATIN 30 GM POWDER BTL TOP ×2 (09:54→21:19)
[2017-10-20] MEDS: HEPARIN 5,000 UNIT/0.5 ML VIAL SC ×2 (10:00→21:16)
[2017-10-20] MEDS: TIOTROPIUM 18 MCG CAPSULE INHA DEV INH (10:44)
[2017-10-20] MEDS: ERTAPENEM SODIUM 1 GM in SOD CHLORIDE 0.9% 100 ML IVPB (11:37)
[2017-10-20] MEDS: ONDANSETRON 4 MG TAB PO (13:02)
[2017-10-20] MEDS ORDERED: THEOPHYLLINE (SR) 300 MG CAP PO (13:30)
[2017-10-20] MEDS: BUPROPION (XL) 150 MG TAB PO (14:03)
[2017-10-20] MEDS: FINASTERIDE 5 MG TAB PO (14:04)
[2017-10-20] MEDS: THEOPHYLLINE 100 MG PO (14:11)
[2017-10-20] MEDS: ATORVASTATIN 40 MG TAB PO (21:16)
[2017-10-20] MEDS: DOXAZOSIN 2 MG TAB PO (21:17)
[2017-10-20] MEDS: MONTELUKAST 10 MG TAB PO (22:51)
[2017-10-20] MEDS: DEXAMETHASONE 1 MG TAB PO (22:52)
[2017-10-20] MEDS: ZOLPIDEM 5 MG TAB PO (22:52)
[2017-10-21] MEDS: VANCOMYCIN 1 GM 250 ML IVPB (00:43)
[2017-10-21] MEDS: SOD CHLORIDE 0.9% 1,000 ML IV ×2 (03:51→18:10)
[2017-10-21 04:54] LABS: AADO2 Arterial 14.7 mmHg (7.0-24.0); Allen Test ACCEPTAB; Arterial Base Excess 14.2 mmol/L (-3.0-3); Arterial Blood Gas Oxygen Sat 96.6 mmHG (95.0-100.0); Arterial COHb 0.3 % (0.0-3.0); Arterial Fraction of Oxyhgb 96.1 % (93.0-99.0); Arterial HCO3 42.7 mmol/L (22.0-26.0); Arterial MetHb 0.2 % (0.0-1.5); Arterial Total Hemglobin 11.7 g/dl (12.0-18.0); Arterial pCO2 76.8 mmhg (35-45); MODE NASAL CANNULA; Site Left Radial
[2017-10-21 05:40] LABS: ADD MAN DIFF? NO
[2017-10-21 05:52] LABS: ABNORMAL IP MESSAGE 1; BASOPHILS % 0.4 % (0.0-2.0); EOSINOPHILS # 0.1 10^3/ul (0.0-0.5); EOSINOPHILS % 2.2 % (0.0-7.0); HEMATOCRIT 34.1 % (42.0-52.0); HEMOGLOBIN 10.6 g/dl (14.0-18.0); LYMPHOCYTES # 0.6 10^3/ul (0.8-2.9); LYMPHOCYTES % 11.4 % (15.0-51.0); MEAN CORPUSCULAR HGB CONC 31.1 g/dl (32.0-37.0); MEAN CORPUSCULAR VOLUME 96.6 fl (82.0-101.0); MEAN PLATELET VOLUME 10.9 fl (7.4-10.4); MONOCYTE # 0.4 10^3/ul (0.3-0.9); MONOCYTES % 7.8 % (0.0-11.0); NEUTROPHIL # 3.9 10^3/ul (1.6-7.5); NEUTROPHILS % 77.8 % (39.0-77.0); PLATELET COUNT 152 10^3/UL (140-415); POSITIVE DIFF @See below; RED BLOOD COUNT 3.53 10^6/ul (4.70-6.10); RED CELL DISTRIBUTION WIDTH 14.8 % (11.5-14.5)
[2017-10-21] MEDS: PANTOPRAZOLE (EC) 40 MG TAB PO (05:56)
[2017-10-21] MEDS: CHLORTHALIDONE 25 MG TAB PO (05:59)
[2017-10-21 06:20] LABS: ALANINE AMINOTRANSFERASE 34 IU/L (13-69); ALBUMIN 2.8 g/dl (3.3-4.9); ALBUMIN/GLOBULIN RATIO 1.16; ALKALINE PHOSPHATASE 63 IU/L (42-121); ANION GAP 9 (8-16); ASPARTATE AMINO TRANSFERASE 17 IU/L (15-46); BILIRUBIN,INDIRECT 0.3 mg/dl (0-1.1); BILIRUBIN,TOTAL 0.3 mg/dl (0.2-1.3); BLOOD UREA NITROGEN 11 mg/dl (7-20); CARBON DIOXIDE 39 mmol/L (21-31); CHLORIDE 97 mmol/L (97-110); CREATININE 0.61 mg/dl (0.61-1.24); GLUCOSE 89 mg/dl (70-220); POTASSIUM 4.2 mmol/L (3.5-5.1); SODIUM 141 mmol/L (135-144); TOTAL PROTEIN 5.2 g/dl (6.1-8.1)
[2017-10-21] MEDS: METOPROLOL 50 MG TAB PO ×2 (09:00→21:45)
[2017-10-21] MEDS: SALMETEROL/FLUTICASONE 250/50 INHA INH ×2 (10:25→21:52)
[2017-10-21] MEDS: TIOTROPIUM 18 MCG CAPSULE INHA DEV INH (10:26)
[2017-10-21] MEDS: ASPIRIN 81 MG TAB PO (10:27)
[2017-10-21] MEDS: HEPARIN 5,000 UNIT/0.5 ML VIAL SC ×2 (10:27→21:46)
[2017-10-21] MEDS: LOSARTAN 50 MG TAB PO ×2 (10:27→21:45)
[2017-10-21] MEDS: TERBINAFINE 250 MG TAB PO ×2 (10:28→21:44)
[2017-10-21] MEDS: ESCITALOPRAM 10 MG TAB PO (10:28)
[2017-10-21] MEDS: CLOPIDOGREL 75 MG TAB PO (10:29)
[2017-10-21] MEDS: FINASTERIDE 5 MG TAB PO (10:29)
[2017-10-21] MEDS: THEOPHYLLINE 100 MG PO (10:30)
[2017-10-21] MEDS: MULTIVIT/CA CARB/B CMPLX/FA TAB PO (10:30)
[2017-10-21] MEDS: BUPROPION (XL) 150 MG TAB PO (10:30)
[2017-10-21] MEDS: ASCORBIC ACID 500 MG TAB PO ×2 (10:30→21:45)
[2017-10-21] MEDS: ZINC SULFATE 220 MG CAP PO (10:30)
[2017-10-21] MEDS: BALSAM PERU/CASTOR OIL 60 GM TUBE TOP ×2 (10:31→21:51)
[2017-10-21] MEDS: NYSTATIN 30 GM POWDER BTL TOP ×2 (10:31→21:51)
[2017-10-21 11:56] LABS: VANCOMYCIN,TROUGH 19.5 ug/ml (10.0-20.0)
[2017-10-21] MEDS: ERTAPENEM SODIUM 1 GM in SOD CHLORIDE 0.9% 100 ML IVPB (12:18)
[2017-10-21] MEDS: ALPRAZOLAM 0.25 MG TAB PO (14:41)
[2017-10-21] MEDS: TOBRAMYCIN 0.3% 5 ML OPH BOTH EYES ×2 (17:00→21:44)
[2017-10-21] MEDS: VANCOMYCIN 750 MG in DEXTROSE 5% 150 ML IVPB (18:09)
[2017-10-21] MEDS: LORAZEPAM 2 MG INJ IV (18:10)
[2017-10-21 20:06] LABS: ADD UMIC NO; UR ASCORBIC ACID 40 mg/dL (NEGATIVE); UR BILIRUBIN (Dip) NEGATIVE (NEGATIVE); UR BLOOD (Dip) NEGATIVE (NEGATIVE); UR CLARITY CLEAR (CLEAR); UR COLOR YELLOW (YELLOW); UR GLUCOSE (Dip) NEGATIVE (NEGATIVE); UR KETONES (Dip) NEGATIVE (NEGATIVE); UR LEUKOCYTE ESTERASE (Dip) NEGATIVE Leu/ul (NEGATIVE); UR NITRITE (Dip) NEGATIVE (NEGATIVE); UR SPECIFIC GRAVITY (Dip) 1.013 (1.003-1.030); UR TOTAL PROTEIN (Dip) NEGATIVE (NEGATIVE); UR UROBILINOGEN (Dip) NEGATIVE (NEGATIVE)
[2017-10-21] MEDS: MONTELUKAST 10 MG TAB PO (21:44)
[2017-10-21] MEDS: DOXAZOSIN 2 MG TAB PO (21:44)
[2017-10-21] MEDS: ATORVASTATIN 40 MG TAB PO (21:45)
[2017-10-21] MEDS: ZOLPIDEM 5 MG TAB PO (22:48)
[2017-10-22] MEDS: SOD CHLORIDE 0.9% 1,000 ML IV ×2 (04:00→09:20)
[2017-10-22] MEDS: PANTOPRAZOLE (EC) 40 MG TAB PO (05:33)
[2017-10-22] MEDS: VANCOMYCIN 750 MG in DEXTROSE 5% 150 ML IVPB ×2 (05:33→16:01)
[2017-10-22] MEDS: CHLORTHALIDONE 25 MG TAB PO (05:33)
[2017-10-22] MEDS: TIOTROPIUM 18 MCG CAPSULE INHA DEV INH (09:20)
[2017-10-22] MEDS: SALMETEROL/FLUTICASONE 250/50 INHA INH ×2 (09:20→20:52)
[2017-10-22] MEDS: TERBINAFINE 250 MG TAB PO ×2 (09:22→20:52)
[2017-10-22] MEDS: THEOPHYLLINE 100 MG PO (09:22)
[2017-10-22] MEDS: FINASTERIDE 5 MG TAB PO (09:22)
[2017-10-22] MEDS: ASCORBIC ACID 500 MG TAB PO ×2 (09:23→20:52)
[2017-10-22] MEDS: METOPROLOL 50 MG TAB PO ×2 (09:23→20:53)
[2017-10-22] MEDS: ESCITALOPRAM 10 MG TAB PO (09:23)
[2017-10-22] MEDS: LOSARTAN 50 MG TAB PO ×2 (09:23→20:52)
[2017-10-22] MEDS: BUPROPION (XL) 150 MG TAB PO (09:23)
[2017-10-22] MEDS: ZINC SULFATE 220 MG CAP PO (09:23)
[2017-10-22] MEDS: ASPIRIN 81 MG TAB PO (09:23)
[2017-10-22] MEDS: CLOPIDOGREL 75 MG TAB PO (09:23)
[2017-10-22] MEDS: BALSAM PERU/CASTOR OIL 60 GM TUBE TOP ×2 (09:24→20:51)
[2017-10-22] MEDS: TOBRAMYCIN 0.3% 5 ML OPH BOTH EYES ×4 (09:24→20:52)
[2017-10-22] MEDS: HEPARIN 5,000 UNIT/0.5 ML VIAL SC ×2 (09:24→20:55)
[2017-10-22] MEDS: MULTIVIT/CA CARB/B CMPLX/FA TAB PO (09:24)
[2017-10-22] MEDS: NYSTATIN 30 GM POWDER BTL TOP ×2 (09:24→20:51)
[2017-10-22] MEDS: ERTAPENEM SODIUM 1 GM in SOD CHLORIDE 0.9% 100 ML IVPB (12:05)
[2017-10-22] MEDS: ALPRAZOLAM 0.25 MG TAB PO (13:33)
[2017-10-22] MEDS: MONTELUKAST 10 MG TAB PO (20:52)
[2017-10-22] MEDS: ATORVASTATIN 40 MG TAB PO (20:52)
[2017-10-22] MEDS: HYDROCODONE/APAP (5/325) TAB PO (20:53)
[2017-10-22] MEDS: DOXAZOSIN 2 MG TAB PO (20:53)
[2017-10-22] MEDS: ZOLPIDEM 5 MG TAB PO (22:02)
[2017-10-23 05:00] LABS: BLOOD UREA NITROGEN 13 mg/dl (7-20)
[2017-10-23 05:00] LABS: CREATININE 0.68 mg/dl (0.61-1.24)
[2017-10-23 05:05] LABS: VANCOMYCIN,TROUGH 14.8 ug/ml (10.0-20.0)
[2017-10-23] MEDS: SOD CHLORIDE 0.9% 1,000 ML IV ×2 (05:59→17:30)
[2017-10-23] MEDS: VANCOMYCIN 750 MG in DEXTROSE 5% 150 ML IVPB ×2 (05:59→18:07)
[2017-10-23] MEDS: CHLORTHALIDONE 25 MG TAB PO (06:00)
[2017-10-23] MEDS: PANTOPRAZOLE (EC) 40 MG TAB PO (06:00)
[2017-10-23] MEDS: METOPROLOL 50 MG TAB PO ×2 (09:00→21:00)
[2017-10-23] MEDS: ASPIRIN 81 MG TAB PO (09:25)
[2017-10-23] MEDS: TERBINAFINE 250 MG TAB PO ×2 (09:25→21:14)
[2017-10-23] MEDS: TOBRAMYCIN 0.3% 5 ML OPH BOTH EYES ×4 (09:25→21:14)
[2017-10-23] MEDS: SALMETEROL/FLUTICASONE 250/50 INHA INH ×2 (09:25→21:36)
[2017-10-23] MEDS: TIOTROPIUM 18 MCG CAPSULE INHA DEV INH (09:25)
[2017-10-23] MEDS: LOSARTAN 50 MG TAB PO ×2 (09:26→21:15)
[2017-10-23] MEDS: ESCITALOPRAM 10 MG TAB PO (09:26)
[2017-10-23] MEDS: HEPARIN 5,000 UNIT/0.5 ML VIAL SC ×2 (09:27→21:22)
[2017-10-23] MEDS: THEOPHYLLINE 100 MG PO (09:28)
[2017-10-23] MEDS: ZINC SULFATE 220 MG CAP PO (09:28)
[2017-10-23] MEDS: BUPROPION (XL) 150 MG TAB PO (09:28)
[2017-10-23] MEDS: ASCORBIC ACID 500 MG TAB PO ×2 (09:28→21:15)
[2017-10-23] MEDS: FINASTERIDE 5 MG TAB PO (09:28)
[2017-10-23] MEDS: CLOPIDOGREL 75 MG TAB PO (09:28)
[2017-10-23] MEDS: MULTIVIT/CA CARB/B CMPLX/FA TAB PO (09:28)
[2017-10-23] MEDS: BALSAM PERU/CASTOR OIL 60 GM TUBE TOP ×2 (09:29→21:13)
[2017-10-23] MEDS: NYSTATIN 30 GM POWDER BTL TOP ×2 (09:29→21:14)
[2017-10-23] MEDS: HYDROCODONE/APAP (5/325) TAB PO ×2 (09:44→16:23)
[2017-10-23] MEDS: ALPRAZOLAM 0.25 MG TAB PO (13:31)
[2017-10-23] MEDS: DOXAZOSIN 2 MG TAB PO (21:14)
[2017-10-23] MEDS: MONTELUKAST 10 MG TAB PO (21:15)
[2017-10-23] MEDS: ZOLPIDEM 5 MG TAB PO (21:15)
[2017-10-23] MEDS: ATORVASTATIN 40 MG TAB PO (21:15)
[2017-10-24] MEDS: SOD CHLORIDE 0.9% 1,000 ML IV ×3 (05:18→21:00)
[2017-10-24] MEDS: VANCOMYCIN 750 MG in DEXTROSE 5% 150 ML IVPB ×3 (05:18→21:00)
[2017-10-24] MEDS: PANTOPRAZOLE (EC) 40 MG TAB PO (05:18)
[2017-10-24] MEDS: CHLORTHALIDONE 25 MG TAB PO (05:18)
[2017-10-24 06:33] LABS: ADD MAN DIFF? NO
[2017-10-24 06:39] LABS: WHITE BLOOD COUNT 7.5 10^3/ul (4.8-10.8)
[2017-10-24 06:39] LABS: BASOPHILS % 0.3 % (0.0-2.0); EOSINOPHILS # 0.2 10^3/ul (0.0-0.5); HEMATOCRIT 34.6 % (42.0-52.0); LYMPHOCYTES # 0.8 10^3/ul (0.8-2.9); LYMPHOCYTES % 10.9 % (15.0-51.0); MEAN CORPUSCULAR HEMOGLOBIN 30.3 pg (29.0-33.0); MEAN CORPUSCULAR HGB CONC 31.8 g/dl (32.0-37.0); MEAN CORPUSCULAR VOLUME 95.3 fl (82.0-101.0); MEAN PLATELET VOLUME 10.9 fl (7.4-10.4); MONOCYTE # 0.6 10^3/ul (0.3-0.9); MONOCYTES % 8.1 % (0.0-11.0); NEUTROPHIL # 5.9 10^3/ul (1.6-7.5); NEUTROPHILS % 78.4 % (39.0-77.0); PLATELET COUNT 172 10^3/UL (140-415); RED BLOOD COUNT 3.63 10^6/ul (4.70-6.10); RED CELL DISTRIBUTION WIDTH 14.1 % (11.5-14.5)
[2017-10-24 07:04] LABS: ALANINE AMINOTRANSFERASE 38 IU/L (13-69); ALBUMIN 3.2 g/dl (3.3-4.9); ALBUMIN/GLOBULIN RATIO 1.06; ALKALINE PHOSPHATASE 64 IU/L (42-121); ASPARTATE AMINO TRANSFERASE 20 IU/L (15-46); BILIRUBIN,INDIRECT 0.3 mg/dl (0-1.1); BILIRUBIN,TOTAL 0.3 mg/dl (0.2-1.3); BLOOD UREA NITROGEN 12 mg/dl (7-20); CALCIUM 9.5 mg/dl (8.4-10.2); CHLORIDE 92 mmol/L (97-110); CREATININE 0.67 mg/dl (0.61-1.24); GLUCOSE 96 mg/dl (70-220); POTASSIUM 3.3 mmol/L (3.5-5.1); SODIUM 139 mmol/L (135-144); TOTAL PROTEIN 6.2 g/dl (6.1-8.1)
[2017-10-24 07:10] LABS: ANION GAP 10 (8-16)
[2017-10-24 07:17] LABS: CARBON DIOXIDE 40 mmol/L (21-31)
[2017-10-24] MEDS: TERBINAFINE 250 MG TAB PO ×2 (09:00→11:04)
[2017-10-24] MEDS: LOSARTAN 50 MG TAB PO ×2 (09:09→21:00)
[2017-10-24] MEDS: SALMETEROL/FLUTICASONE 250/50 INHA INH ×2 (09:09→21:01)
[2017-10-24] MEDS: TOBRAMYCIN 0.3% 5 ML OPH BOTH EYES ×4 (09:09→21:00)
[2017-10-24] MEDS: THEOPHYLLINE 100 MG PO (09:09)
[2017-10-24] MEDS: ASPIRIN 81 MG TAB PO (09:10)
[2017-10-24] MEDS: ZINC SULFATE 220 MG CAP PO (09:10)
[2017-10-24] MEDS: CLOPIDOGREL 75 MG TAB PO (09:10)
[2017-10-24] MEDS: METOPROLOL 50 MG TAB PO ×2 (09:10→21:00)
[2017-10-24] MEDS: FINASTERIDE 5 MG TAB PO (09:10)
[2017-10-24] MEDS: TIOTROPIUM 18 MCG CAPSULE INHA DEV INH (09:11)
[2017-10-24] MEDS: ASCORBIC ACID 500 MG TAB PO ×2 (09:11→21:00)
[2017-10-24] MEDS: MULTIVIT/CA CARB/B CMPLX/FA TAB PO (09:11)
[2017-10-24] MEDS: POTASSIUM CHLORIDE (SR) 20 MEQ TAB PO ×2 (09:11→12:12)
[2017-10-24] MEDS: BUPROPION (XL) 150 MG TAB PO (09:11)
[2017-10-24] MEDS: HEPARIN 5,000 UNIT/0.5 ML VIAL SC ×2 (09:12→21:02)
[2017-10-24] MEDS: ESCITALOPRAM 10 MG TAB PO (09:12)
[2017-10-24] MEDS: BALSAM PERU/CASTOR OIL 60 GM TUBE TOP ×2 (09:13→21:09)
[2017-10-24] MEDS: NYSTATIN 30 GM POWDER BTL TOP ×2 (09:13→21:09)
[2017-10-24] MEDS: HYDROCODONE/APAP (5/325) TAB PO ×2 (09:28→14:56)
[2017-10-24] MEDS: BISACODYL 10 MG SUPP PR (14:49)
[2017-10-24] MEDS: DOXAZOSIN 2 MG TAB PO (20:59)
[2017-10-24] MEDS: MONTELUKAST 10 MG TAB PO (20:59)
[2017-10-24] MEDS: ATORVASTATIN 40 MG TAB PO (21:00)
[2017-10-24] MEDS: ZOLPIDEM 5 MG TAB PO (21:36)
[2017-10-25] MEDS: HYDROCODONE/APAP (5/325) TAB PO ×3 (01:17→21:16)
[2017-10-25] MEDS: ALPRAZOLAM 0.25 MG TAB PO ×2 (03:34→15:52)
[2017-10-25 05:56] LABS: BLOOD UREA NITROGEN 12 mg/dl (7-20); CHLORIDE 94 mmol/L (97-110); CREATININE 0.74 mg/dl (0.61-1.24); GLUCOSE 91 mg/dl (70-220); POTASSIUM 3.7 mmol/L (3.5-5.1); SODIUM 137 mmol/L (135-144)
[2017-10-25 06:04] LABS: ANION GAP 8 (8-16)
[2017-10-25] MEDS: CHLORTHALIDONE 25 MG TAB PO (06:21)
[2017-10-25] MEDS: PANTOPRAZOLE (EC) 40 MG TAB PO (06:21)
[2017-10-25] MEDS: VANCOMYCIN 750 MG in DEXTROSE 5% 150 ML IVPB ×2 (06:22→16:17)
[2017-10-25 06:35] LABS: CARBON DIOXIDE 39 mmol/L (21-31)
[2017-10-25] MEDS: SOD CHLORIDE 0.9% 1,000 ML IV ×2 (07:00→12:21)
[2017-10-25] MEDS: ZINC SULFATE 220 MG CAP PO (09:00)
[2017-10-25] MEDS: THEOPHYLLINE 100 MG PO (09:00)
[2017-10-25] MEDS: TOBRAMYCIN 0.3% 5 ML OPH BOTH EYES ×4 (09:00→21:08)
[2017-10-25] MEDS: FINASTERIDE 5 MG TAB PO (09:00)
[2017-10-25] MEDS: SALMETEROL/FLUTICASONE 250/50 INHA INH ×2 (09:00→21:09)
[2017-10-25] MEDS: BUPROPION (XL) 150 MG TAB PO (09:00)
[2017-10-25] MEDS: CLOPIDOGREL 75 MG TAB PO (09:03)
[2017-10-25] MEDS: METOPROLOL 50 MG TAB PO ×2 (09:03→21:12)
[2017-10-25] MEDS: LOSARTAN 50 MG TAB PO ×2 (09:03→21:12)
[2017-10-25] MEDS: ESCITALOPRAM 10 MG TAB PO (09:04)
[2017-10-25] MEDS: ASCORBIC ACID 500 MG TAB PO ×2 (09:04→21:09)
[2017-10-25] MEDS: MULTIVIT/CA CARB/B CMPLX/FA TAB PO (09:04)
[2017-10-25] MEDS: ASPIRIN 81 MG TAB PO (09:04)
[2017-10-25] MEDS: HEPARIN 5,000 UNIT/0.5 ML VIAL SC ×2 (09:05→21:10)
[2017-10-25] MEDS: NYSTATIN 30 GM POWDER BTL TOP ×2 (09:06→21:13)
[2017-10-25] MEDS: BALSAM PERU/CASTOR OIL 60 GM TUBE TOP ×2 (09:06→21:14)
[2017-10-25] MEDS: ATORVASTATIN 40 MG TAB PO (21:09)
[2017-10-25] MEDS: MONTELUKAST 10 MG TAB PO (21:09)
[2017-10-25] MEDS: DOXAZOSIN 2 MG TAB PO (21:13)
[2017-10-25] MEDS: ZOLPIDEM 5 MG TAB PO (22:08)
[2017-10-26] MEDS: SOD CHLORIDE 0.9% 1,000 ML IV ×2 (02:50→08:00)
[2017-10-26] MEDS: VANCOMYCIN 750 MG in DEXTROSE 5% 150 ML IVPB ×2 (06:01→16:47)
[2017-10-26] MEDS: ESCITALOPRAM 10 MG TAB PO (09:07)
[2017-10-26] MEDS: SALMETEROL/FLUTICASONE 250/50 INHA INH ×2 (09:07→20:53)
[2017-10-26] MEDS: BUPROPION (XL) 150 MG TAB PO (09:07)
[2017-10-26] MEDS: TOBRAMYCIN 0.3% 5 ML OPH BOTH EYES ×4 (09:09→20:54)
[2017-10-26] MEDS: HEPARIN 5,000 UNIT/0.5 ML VIAL SC ×2 (09:09→20:58)
[2017-10-26] MEDS: THEOPHYLLINE 100 MG PO (09:10)
[2017-10-26] MEDS: ASCORBIC ACID 500 MG TAB PO ×2 (09:10→20:53)
[2017-10-26] MEDS: ASPIRIN 81 MG TAB PO (09:10)
[2017-10-26] MEDS: METOPROLOL 50 MG TAB PO ×2 (09:11→20:53)
[2017-10-26] MEDS: PANTOPRAZOLE (EC) 40 MG TAB PO (09:11)
[2017-10-26] MEDS: LOSARTAN 50 MG TAB PO ×2 (09:12→20:53)
[2017-10-26] MEDS: CHLORTHALIDONE 25 MG TAB PO (09:12)
[2017-10-26] MEDS: CLOPIDOGREL 75 MG TAB PO (09:12)
[2017-10-26] MEDS: MULTIVIT/CA CARB/B CMPLX/FA TAB PO (09:13)
[2017-10-26] MEDS: BALSAM PERU/CASTOR OIL 60 GM TUBE TOP ×2 (09:13→21:01)
[2017-10-26] MEDS: ZINC SULFATE 220 MG CAP PO (09:13)
[2017-10-26] MEDS: NYSTATIN 30 GM POWDER BTL TOP ×2 (09:13→21:00)
[2017-10-26] MEDS: FINASTERIDE 5 MG TAB PO (09:16)
[2017-10-26] MEDS: HYDROCODONE/APAP (5/325) TAB PO ×2 (09:27→20:53)
[2017-10-26] MEDS: ALPRAZOLAM 0.25 MG TAB PO (16:27)
[2017-10-26] MEDS: DOXAZOSIN 2 MG TAB PO (20:52)
[2017-10-26] MEDS: ATORVASTATIN 40 MG TAB PO (20:53)
[2017-10-26] MEDS: ZOLPIDEM 5 MG TAB PO (22:11)
[2017-10-27] MEDS: SOD CHLORIDE 0.9% 1,000 ML IV ×3 (00:28→18:20)
[2017-10-27] MEDS: CHLORTHALIDONE 25 MG TAB PO (05:29)
[2017-10-27] MEDS: PANTOPRAZOLE (EC) 40 MG TAB PO (05:29)
[2017-10-27] MEDS: HEPARIN 5,000 UNIT/0.5 ML VIAL SC ×2 (08:21→20:08)
[2017-10-27] MEDS: ASCORBIC ACID 500 MG TAB PO ×2 (08:22→20:10)
[2017-10-27] MEDS: FINASTERIDE 5 MG TAB PO (08:22)
[2017-10-27] MEDS: BUPROPION (XL) 150 MG TAB PO (08:22)
[2017-10-27] MEDS: CLOPIDOGREL 75 MG TAB PO (08:22)
[2017-10-27] MEDS: TOBRAMYCIN 0.3% 5 ML OPH BOTH EYES ×4 (08:22→20:07)
[2017-10-27] MEDS: MULTIVIT/CA CARB/B CMPLX/FA TAB PO (08:22)
[2017-10-27] MEDS: METOPROLOL 50 MG TAB PO ×2 (08:23→20:09)
[2017-10-27] MEDS: THEOPHYLLINE 100 MG PO (08:23)
[2017-10-27] MEDS: ASPIRIN 81 MG TAB PO (08:23)
[2017-10-27] MEDS: LOSARTAN 50 MG TAB PO ×2 (08:24→20:09)
[2017-10-27] MEDS: SALMETEROL/FLUTICASONE 250/50 INHA INH ×2 (08:24→20:07)
[2017-10-27] MEDS: ZINC SULFATE 220 MG CAP PO (08:24)
[2017-10-27] MEDS: ESCITALOPRAM 10 MG TAB PO (08:24)
[2017-10-27] MEDS: HYDROCODONE/APAP (5/325) TAB PO ×3 (08:33→21:15)
[2017-10-27] MEDS: NYSTATIN 30 GM POWDER BTL TOP ×2 (09:00→20:10)
[2017-10-27] MEDS: BALSAM PERU/CASTOR OIL 60 GM TUBE TOP ×2 (09:00→20:10)
[2017-10-27] MEDS: ONDANSETRON 4 MG TAB PO (18:16)
[2017-10-27] MEDS: ATORVASTATIN 40 MG TAB PO (20:09)
[2017-10-27] MEDS: DOXAZOSIN 2 MG TAB PO (20:09)
[2017-10-27] MEDS: ZOLPIDEM 5 MG TAB PO (22:01)
[2017-10-28] MEDS: ALPRAZOLAM 0.25 MG TAB PO (00:45)
[2017-10-28] MEDS: CHLORTHALIDONE 25 MG TAB PO (05:30)
[2017-10-28] MEDS: PANTOPRAZOLE (EC) 40 MG TAB PO (05:31)
[2017-10-28] MEDS: METOPROLOL 50 MG TAB PO ×2 (09:00→20:52)
[2017-10-28] MEDS: CLOPIDOGREL 75 MG TAB PO (09:01)
[2017-10-28] MEDS: BUPROPION (XL) 150 MG TAB PO (09:01)
[2017-10-28] MEDS: MULTIVIT/CA CARB/B CMPLX/FA TAB PO (09:01)
[2017-10-28] MEDS: ESCITALOPRAM 10 MG TAB PO (09:03)
[2017-10-28] MEDS: ASPIRIN 81 MG TAB PO (09:03)
[2017-10-28] MEDS: LOSARTAN 50 MG TAB PO ×2 (09:03→20:52)
[2017-10-28] MEDS: THEOPHYLLINE 100 MG PO (09:03)
[2017-10-28] MEDS: ASCORBIC ACID 500 MG TAB PO ×2 (09:03→20:51)
[2017-10-28] MEDS: TOBRAMYCIN 0.3% 5 ML OPH BOTH EYES ×2 (09:04→13:28)
[2017-10-28] MEDS: FINASTERIDE 5 MG TAB PO (09:04)
[2017-10-28] MEDS: SALMETEROL/FLUTICASONE 250/50 INHA INH ×2 (09:05→20:50)
[2017-10-28] MEDS: HEPARIN 5,000 UNIT/0.5 ML VIAL SC ×2 (09:07→20:59)
[2017-10-28] MEDS: HYDROCODONE/APAP (5/325) TAB PO ×3 (09:18→21:21)
[2017-10-28] MEDS: NYSTATIN 30 GM POWDER BTL TOP ×2 (13:29→20:53)
[2017-10-28] MEDS: KETOCONAZOLE 200 MG TAB PO (14:23)
[2017-10-28] MEDS: BALSAM PERU/CASTOR OIL 60 GM TUBE TOP ×2 (18:40→20:53)
[2017-10-28] MEDS: ATORVASTATIN 40 MG TAB PO (20:51)
[2017-10-28] MEDS: DOXAZOSIN 2 MG TAB PO (21:20)
[2017-10-28] MEDS: ZOLPIDEM 5 MG TAB PO (22:23)
[2017-10-29] MEDS: PANTOPRAZOLE (EC) 40 MG TAB PO (05:08)
[2017-10-29] MEDS: CHLORTHALIDONE 25 MG TAB PO (05:09)
[2017-10-29] MEDS: BISACODYL 10 MG SUPP PR (05:09)
[2017-10-29 07:16] LABS: ADD MAN DIFF? NO
[2017-10-29 07:21] LABS: BASOPHILS % 0.4 % (0.0-2.0); EOSINOPHILS # 0.2 10^3/ul (0.0-0.5); EOSINOPHILS % 2.2 % (0.0-7.0); HEMATOCRIT 32.1 % (42.0-52.0); HEMOGLOBIN 10.2 g/dl (14.0-18.0); LYMPHOCYTES # 0.9 10^3/ul (0.8-2.9); LYMPHOCYTES % 12.2 % (15.0-51.0); MEAN CORPUSCULAR HEMOGLOBIN 30.4 pg (29.0-33.0); MEAN CORPUSCULAR HGB CONC 31.8 g/dl (32.0-37.0); MEAN CORPUSCULAR VOLUME 95.8 fl (82.0-101.0); MEAN PLATELET VOLUME 10.6 fl (7.4-10.4); MONOCYTE # 0.7 10^3/ul (0.3-0.9); NEUTROPHIL # 5.5 10^3/ul (1.6-7.5); NEUTROPHILS % 74.7 % (39.0-77.0); PLATELET COUNT 188 10^3/UL (140-415); RED BLOOD COUNT 3.35 10^6/ul (4.70-6.10); RED CELL DISTRIBUTION WIDTH 14.6 % (11.5-14.5)
[2017-10-29 07:21] LABS: WHITE BLOOD COUNT 7.4 10^3/ul (4.8-10.8)
[2017-10-29 07:54] LABS: ALANINE AMINOTRANSFERASE 36 IU/L (13-69); ALBUMIN 3.2 g/dl (3.3-4.9); ALBUMIN/GLOBULIN RATIO 1.28; ALKALINE PHOSPHATASE 61 IU/L (42-121); ASPARTATE AMINO TRANSFERASE 24 IU/L (15-46); BILIRUBIN,INDIRECT 0.3 mg/dl (0-1.1); BILIRUBIN,TOTAL 0.3 mg/dl (0.2-1.3); BLOOD UREA NITROGEN 20 mg/dl (7-20); CALCIUM 9.4 mg/dl (8.4-10.2); CHLORIDE 92 mmol/L (97-110); CREATININE 0.91 mg/dl (0.61-1.24); GLUCOSE 89 mg/dl (70-220); POTASSIUM 3.6 mmol/L (3.5-5.1); SODIUM 139 mmol/L (135-144); TOTAL PROTEIN 5.7 g/dl (6.1-8.1)
[2017-10-29 08:07] LABS: ANION GAP 10 (8-16)
[2017-10-29 08:09] LABS: CARBON DIOXIDE 41 mmol/L (21-31)
[2017-10-29] MEDS: SALMETEROL/FLUTICASONE 250/50 INHA INH ×2 (09:56→19:57)
[2017-10-29] MEDS: MULTIVIT/CA CARB/B CMPLX/FA TAB PO (09:56)
[2017-10-29] MEDS: ASPIRIN 81 MG TAB PO (09:57)
[2017-10-29] MEDS: BUPROPION (XL) 150 MG TAB PO (09:57)
[2017-10-29] MEDS: ESCITALOPRAM 10 MG TAB PO (09:57)
[2017-10-29] MEDS: FINASTERIDE 5 MG TAB PO (09:58)
[2017-10-29] MEDS: ASCORBIC ACID 500 MG TAB PO ×2 (09:58→19:56)
[2017-10-29] MEDS: CLOPIDOGREL 75 MG TAB PO (09:58)
[2017-10-29] MEDS: HEPARIN 5,000 UNIT/0.5 ML VIAL SC ×2 (09:58→19:55)
[2017-10-29] MEDS: METOPROLOL 50 MG TAB PO ×2 (09:59→19:56)
[2017-10-29] MEDS: LOSARTAN 50 MG TAB PO ×2 (09:59→19:57)
[2017-10-29] MEDS: NYSTATIN 30 GM POWDER BTL TOP ×2 (10:00→19:53)
[2017-10-29] MEDS: BALSAM PERU/CASTOR OIL 60 GM TUBE TOP ×2 (10:00→19:53)
[2017-10-29] MEDS: HYDROCODONE/APAP (5/325) TAB PO (11:52)
[2017-10-29] MEDS: KETOCONAZOLE 200 MG TAB PO (11:52)
[2017-10-29] MEDS: ATORVASTATIN 40 MG TAB PO (19:56)
[2017-10-29] MEDS: DOXAZOSIN 2 MG TAB PO (21:13)
[2017-10-29] MEDS: ZOLPIDEM 5 MG TAB PO (22:12)
[2017-10-30] MEDS: PANTOPRAZOLE (EC) 40 MG TAB PO (06:21)
[2017-10-30] MEDS: CHLORTHALIDONE 25 MG TAB PO (06:23)
[2017-10-30] MEDS: SALMETEROL/FLUTICASONE 250/50 INHA INH ×2 (09:18→21:00)
[2017-10-30] MEDS: BUPROPION (XL) 150 MG TAB PO (09:19)
[2017-10-30] MEDS: KETOCONAZOLE 200 MG TAB PO (09:19)
[2017-10-30] MEDS: CLOPIDOGREL 75 MG TAB PO (09:19)
[2017-10-30] MEDS: ASPIRIN 81 MG TAB PO (09:19)
[2017-10-30] MEDS: ASCORBIC ACID 500 MG TAB PO ×2 (09:19→20:59)
[2017-10-30] MEDS: ESCITALOPRAM 10 MG TAB PO (09:19)
[2017-10-30] MEDS: FINASTERIDE 5 MG TAB PO (09:19)
[2017-10-30] MEDS: MULTIVIT/CA CARB/B CMPLX/FA TAB PO (09:19)
[2017-10-30] MEDS: HYDROCODONE/APAP (5/325) TAB PO ×2 (09:20→21:01)
[2017-10-30] MEDS: METOPROLOL 50 MG TAB PO ×2 (09:21→21:00)
[2017-10-30] MEDS: LOSARTAN 50 MG TAB PO ×2 (09:21→21:00)
[2017-10-30] MEDS: HEPARIN 5,000 UNIT/0.5 ML VIAL SC ×2 (09:22→21:04)
[2017-10-30] MEDS: BALSAM PERU/CASTOR OIL 60 GM TUBE TOP ×2 (09:27→21:02)
[2017-10-30] MEDS: NYSTATIN 30 GM POWDER BTL TOP ×2 (09:27→21:01)
[2017-10-30] MEDS: ATORVASTATIN 40 MG TAB PO (20:59)
[2017-10-30] MEDS: DOXAZOSIN 2 MG TAB PO (21:00)
[2017-10-30] MEDS: ZOLPIDEM 5 MG TAB PO (22:06)
[2017-10-31] MEDS: CHLORTHALIDONE 25 MG TAB PO (07:00)
[2017-10-31] MEDS: PANTOPRAZOLE (EC) 40 MG TAB PO (07:00)
[2017-10-31] MEDS: FINASTERIDE 5 MG TAB PO (09:12)
[2017-10-31] MEDS: ESCITALOPRAM 10 MG TAB PO (09:12)
[2017-10-31] MEDS: KETOCONAZOLE 200 MG TAB PO (09:12)
[2017-10-31] MEDS: CLOPIDOGREL 75 MG TAB PO (09:12)
[2017-10-31] MEDS: BUPROPION (XL) 150 MG TAB PO (09:12)
[2017-10-31] MEDS: HEPARIN 5,000 UNIT/0.5 ML VIAL SC (09:13)
[2017-10-31] MEDS: METOPROLOL 50 MG TAB PO (09:13)
[2017-10-31] MEDS: LOSARTAN 50 MG TAB PO (09:14)
[2017-10-31] MEDS: ASCORBIC ACID 500 MG TAB PO (09:14)
[2017-10-31] MEDS: MULTIVIT/CA CARB/B CMPLX/FA TAB PO (09:21)
[2017-10-31] MEDS: BALSAM PERU/CASTOR OIL 60 GM TUBE TOP (09:27)
[2017-10-31] MEDS: NYSTATIN 30 GM POWDER BTL TOP (09:27)
[2017-10-31] MEDS: ASPIRIN 81 MG TAB PO (09:29)
[2017-10-31] MEDS: SALMETEROL/FLUTICASONE 250/50 INHA INH (10:11)
[2017-10-31] MEDS: ALPRAZOLAM 0.25 MG TAB PO (13:54)
[2017-10-31] MEDS: BISACODYL 10 MG SUPP PR (16:03)
[2017-10-31] MEDS: HYDROCODONE/APAP (5/325) TAB PO (17:46)
== END 2017-10-31 20:15 | DRG 871 ==
LOC: PP2 10-17 00:42 → E/R 11:28 → MS4 14:17
DX: A41.01 Sepsis due to Methicillin susceptible Staphylococcus aureus (principal); I21.4 Non-ST elevation (NSTEMI) myocardial infarction; J96.02 Acute respiratory failure with hypercapnia; G93.41 Metabolic encephalopathy; I50.33 Acute on chronic diastolic (congestive) heart failure; N17.9 Acute kidney failure, unspecified; N39.0 Urinary tract infection, site not specified; I69.951 Hemiplegia and hemiparesis following unspecified cerebrovascular disease affecting right dominant side; J44.1 Chronic obstructive pulmonary disease with (acute) exacerbation; Z68.41 Body mass index [BMI] 40.0-44.9, adult; F32.0 Major depressive disorder, single episode, mild; Z86.73 Personal history of transient ischemic attack (TIA), and cerebral infarction without residual deficits; E66.01 Morbid (severe) obesity due to excess calories; Z66 Do not resuscitate; I11.0 Hypertensive heart disease with heart failure; B96.20 Unspecified Escherichia coli [E. coli] as the cause of diseases classified elsewhere; Z16.12 Extended spectrum beta lactamase (ESBL) resistance; Z85.46 Personal history of malignant neoplasm of prostate
CPT/HCPCS: 36600; 71045; 80048; 80053; 80061; 80202; 81001; 81003; 82530; 82533; 82550; 82553; 82565; 82803; 83605; 83690; 83880; 84484; 84520; 85025; 85651; 87040; 87081; 87086; 93005; 93306; 94010; 94660; 97110; 97162; 97530

== ENCOUNTER 2018-03-07 15:42 | Inpatient (IN) | payer MEDICARE, OTHER ==
[2018-03-07 17:25] LABS: ADD MAN DIFF? NO
[2018-03-07 17:30] LABS: WHITE BLOOD COUNT 7.5 10^3/ul (4.8-10.8)
[2018-03-07 17:30] LABS: ABNORMAL IP MESSAGE 1; BASOPHILS % 0.3 % (0.0-2.0); EOSINOPHILS # 0.1 10^3/ul (0.0-0.5); EOSINOPHILS % 1.5 % (0.0-7.0); HEMOGLOBIN 10.3 g/dl (14.0-18.0); LYMPHOCYTES % 13.1 % (15.0-51.0); MEAN CORPUSCULAR HEMOGLOBIN 29.9 pg (29.0-33.0); MEAN CORPUSCULAR HGB CONC 28.6 g/dl (32.0-37.0); MEAN CORPUSCULAR VOLUME 104.7 fl (82.0-101.0); MEAN PLATELET VOLUME 10.6 fl (7.4-10.4); MONOCYTE # 0.7 10^3/ul (0.3-0.9); MONOCYTES % 8.7 % (0.0-11.0); NEUTROPHIL # 5.7 10^3/ul (1.6-7.5); NEUTROPHILS % 76.1 % (39.0-77.0); PLATELET COUNT 106 10^3/UL (140-415); POSITIVE DIFF @See below; RED BLOOD COUNT 3.44 10^6/ul (4.70-6.10); RED CELL DISTRIBUTION WIDTH 13.9 % (11.5-14.5)
[2018-03-07 17:48] LABS: ALANINE AMINOTRANSFERASE 17 IU/L (13-69); ALBUMIN 3.4 g/dl (3.3-4.9); ALBUMIN/GLOBULIN RATIO 1.06; ALKALINE PHOSPHATASE 54 IU/L (42-121); ASPARTATE AMINO TRANSFERASE 17 IU/L (15-46); BILIRUBIN,INDIRECT 0.5 mg/dl (0-1.1); BILIRUBIN,TOTAL 0.5 mg/dl (0.2-1.3); BLOOD UREA NITROGEN 21 mg/dl (7-20); CALCIUM 9.2 mg/dl (8.4-10.2); CHLORIDE 92 mmol/L (97-110); CREATININE 0.66 mg/dl (0.61-1.24); GLUCOSE 113 mg/dl (70-220); POTASSIUM 4.8 mmol/L (3.5-5.1); SODIUM 145 mmol/L (135-144); TOTAL PROTEIN 6.6 g/dl (6.1-8.1)
[2018-03-07 17:58] LABS: ANION GAP 9 (8-16)
[2018-03-07 17:59] LABS: CARBON DIOXIDE 49 mmol/L (21-31); TROPONIN-I < 0.012 ng/ml (0.000-0.120)
[2018-03-07 18:36] LABS: AADO2 Arterial 35.2 mmHg (7.0-24.0); Allen Test ACCEPTAB; Arterial Base Excess 21.8 mmol/L (-3.0-3); Arterial Blood Gas Oxygen Sat 90.8 mmHG (95.0-100.0); Arterial COHb 0.7 % (0.0-3.0); Arterial Fraction of Oxyhgb 89.8 % (93.0-99.0); Arterial HCO3 51.7 mmol/L (22.0-26.0); Arterial MetHb 0.4 % (0.0-1.5); Arterial Total Hemglobin 10.7 g/dl (12.0-18.0); Arterial pCO2 96.4 mmhg (35-45); MODE NASAL CANNULA; Site Left Radial
[2018-03-07] MEDS: ALBUTEROL 0.083% (NEB) 2.5 MG/3 ML AMP NEB ×2 (18:59→19:34)
[2018-03-07] MEDS: IPRATROPIUM (NEB) 0.5 MG/2.5 ML AMP NEB (18:59)
[2018-03-07] MEDS ORDERED: ONDANSETRON 4 MG INJ IV (19:30)
[2018-03-07] MEDS: HYDROCODONE/APAP (5/325) TAB PO (20:53)
[2018-03-07 20:55] LABS: B-TYPE NATRIURETIC PEPTIDE 135 PG/ML (0-125)
[2018-03-07] MEDS ORDERED: NACL 0.9% 3 ML SYG IV (23:00)
[2018-03-07] MEDS ORDERED: NON-FORMULARY/PATIENT OWN MED (Ergocalciferol (Vitamin D2) (Vitamin D2) 50,000 UNIT) PO (23:00)
[2018-03-07] MEDS ORDERED: NON-FORMULARY/PATIENT OWN MED (Hydrocodone/Acetaminophen (Norco 5-325 Tablet) 1 EACH) PO (23:00)
[2018-03-07] MEDS ORDERED: MAGNESIUM HYDROXIDE 30ML CUP PO (23:00)
[2018-03-08] MEDS: ALBUTEROL/IPRATROPIUM (NEB) 3 ML AMP NEB ×6 (01:43→20:39)
[2018-03-08] MEDS: ACETAMINOPHEN 325 MG TAB PO (03:57)
[2018-03-08] MEDS: CLOPIDOGREL 75 MG TAB PO (09:13)
[2018-03-08] MEDS: FAMOTIDINE 20 MG INJ IV ×2 (09:13→21:44)
[2018-03-08] MEDS: GABAPENTIN 300 MG CAP PO ×3 (09:13→21:45)
[2018-03-08] MEDS: FINASTERIDE 5 MG TAB PO (09:13)
[2018-03-08] MEDS: [UNRECOGNIZED DRUG - REMARK] XX ×2 (11:00→18:00)
[2018-03-08] MEDS: [UNRECOGNIZED DRUG - REMARK] XX ×2 (11:00→18:00)
[2018-03-08] MEDS: FUROSEMIDE 20 MG INJ IV (19:57)
[2018-03-08] MEDS: DOXAZOSIN 4 MG TAB PO (21:44)
[2018-03-08] MEDS: MIRTAZAPINE 15 MG TAB PO (21:44)
[2018-03-08] MEDS: ATORVASTATIN 40 MG TAB PO (21:44)
[2018-03-08] MEDS: MONTELUKAST 10 MG TAB PO (21:45)
[2018-03-09] MEDS: ALBUTEROL/IPRATROPIUM (NEB) 3 ML AMP NEB ×6 (01:41→21:11)
[2018-03-09] MEDS: [UNRECOGNIZED DRUG - REMARK] XX (03:00)
[2018-03-09] MEDS: [UNRECOGNIZED DRUG - REMARK] XX (03:00)
[2018-03-09] MEDS: FINASTERIDE 5 MG TAB PO (09:01)
[2018-03-09] MEDS: CLOPIDOGREL 75 MG TAB PO (09:01)
[2018-03-09] MEDS: GABAPENTIN 300 MG CAP PO ×3 (09:02→20:29)
[2018-03-09] MEDS: FAMOTIDINE 20 MG INJ IV ×2 (09:02→20:29)
[2018-03-09] MEDS ORDERED: HYDROCODONE/APAP (5/325) TAB PO (10:30)
[2018-03-09] MEDS: HYDROCODONE/APAP (5/325) TAB PO ×2 (10:36→17:39)
[2018-03-09 12:33] LABS: AADO2 Arterial 26.5 mmHg (7.0-24.0); Allen Test ACCEPTAB; Arterial Base Excess 19.6 mmol/L (-3.0-3); Arterial Blood Gas Oxygen Sat 96.1 mmHG (95.0-100.0); Arterial COHb 0.3 % (0.0-3.0); Arterial Fraction of Oxyhgb 95.5 % (93.0-99.0); Arterial MetHb 0.3 % (0.0-1.5); Arterial Total Hemglobin 10.4 g/dl (12.0-18.0); Arterial pCO2 71.9 mmhg (35-45); MODE NASAL CANNULA; Site Right Radial
[2018-03-09] MEDS: DOXAZOSIN 4 MG TAB PO (20:28)
[2018-03-09] MEDS: MONTELUKAST 10 MG TAB PO (20:28)
[2018-03-09] MEDS: ATORVASTATIN 40 MG TAB PO (20:29)
[2018-03-09] MEDS: MIRTAZAPINE 15 MG TAB PO (20:29)
[2018-03-09] MEDS: TIOTROPIUM 18 MCG CAPSULE INHA DEV INH (20:45)
[2018-03-09] MEDS: FLUTICASONE/VILANTEROL 100-25 INH (20:45)
[2018-03-09] MEDS ORDERED: SALMETEROL/FLUTICASONE 250/50 INHA INH (21:00)
[2018-03-10] MEDS: ALBUTEROL/IPRATROPIUM (NEB) 3 ML AMP NEB ×6 (01:21→20:40)
[2018-03-10] MEDS: FLUTICASONE/VILANTEROL 100-25 INH (09:00)
[2018-03-10] MEDS: CLOPIDOGREL 75 MG TAB PO (09:00)
[2018-03-10] MEDS: FINASTERIDE 5 MG TAB PO (09:00)
[2018-03-10] MEDS: FAMOTIDINE 20 MG INJ IV ×2 (09:00→20:27)
[2018-03-10] MEDS: TIOTROPIUM 18 MCG CAPSULE INHA DEV INH (09:00)
[2018-03-10] MEDS: GABAPENTIN 300 MG CAP PO ×3 (09:00→20:27)
[2018-03-10] MEDS: AZITHROMYCIN 250 MG TAB PO (17:52)
[2018-03-10] MEDS: HYDROCODONE/APAP (5/325) TAB PO (18:13)
[2018-03-10] MEDS: ATORVASTATIN 40 MG TAB PO (20:27)
[2018-03-10] MEDS: MIRTAZAPINE 15 MG TAB PO (20:27)
[2018-03-10] MEDS: MONTELUKAST 10 MG TAB PO (20:28)
[2018-03-10] MEDS: DOXAZOSIN 4 MG TAB PO (21:00)
[2018-03-11] MEDS: ALBUTEROL/IPRATROPIUM (NEB) 3 ML AMP NEB ×6 (00:02→20:04)
[2018-03-11] MEDS: FINASTERIDE 5 MG TAB PO (08:40)
[2018-03-11] MEDS: GABAPENTIN 300 MG CAP PO ×3 (08:40→20:36)
[2018-03-11] MEDS: CLOPIDOGREL 75 MG TAB PO (08:40)
[2018-03-11] MEDS: FLUTICASONE/VILANTEROL 100-25 INH (08:41)
[2018-03-11] MEDS: FAMOTIDINE 20 MG INJ IV ×2 (08:41→20:36)
[2018-03-11] MEDS: TIOTROPIUM 18 MCG CAPSULE INHA DEV INH (08:41)
[2018-03-11 09:20] LABS: ADD MAN DIFF? NO
[2018-03-11 09:33] LABS: BASOPHILS % 0.3 % (0.0-2.0); EOSINOPHILS # 0.2 10^3/ul (0.0-0.5); EOSINOPHILS % 6.1 % (0.0-7.0); HEMATOCRIT 32.5 % (42.0-52.0); HEMOGLOBIN 9.8 g/dl (14.0-18.0); LYMPHOCYTES # 0.9 10^3/ul (0.8-2.9); LYMPHOCYTES % 23.4 % (15.0-51.0); MEAN CORPUSCULAR HEMOGLOBIN 30.5 pg (29.0-33.0); MEAN CORPUSCULAR HGB CONC 30.2 g/dl (32.0-37.0); MEAN CORPUSCULAR VOLUME 101.2 fl (82.0-101.0); MEAN PLATELET VOLUME 11.2 fl (7.4-10.4); MONOCYTE # 0.4 10^3/ul (0.3-0.9); MONOCYTES % 11.6 % (0.0-11.0); NEUTROPHIL # 2.2 10^3/ul (1.6-7.5); NEUTROPHILS % 58.6 % (39.0-77.0); PLATELET COUNT 105 10^3/UL (140-415); RED BLOOD COUNT 3.21 10^6/ul (4.70-6.10); RED CELL DISTRIBUTION WIDTH 14.2 % (11.5-14.5)
[2018-03-11 09:33] LABS: WHITE BLOOD COUNT 3.8 10^3/ul (4.8-10.8)
[2018-03-11 09:57] LABS: ALANINE AMINOTRANSFERASE 22 IU/L (13-69); ALBUMIN 3.4 g/dl (3.3-4.9); ALBUMIN/GLOBULIN RATIO 1.36; ALKALINE PHOSPHATASE 53 IU/L (42-121); ASPARTATE AMINO TRANSFERASE 21 IU/L (15-46); BILIRUBIN,INDIRECT 0.5 mg/dl (0-1.1); BILIRUBIN,TOTAL 0.5 mg/dl (0.2-1.3); BLOOD UREA NITROGEN 18 mg/dl (7-20); CHLORIDE 93 mmol/L (97-110); CREATININE 0.84 mg/dl (0.61-1.24); GLUCOSE 89 mg/dl (70-220); POTASSIUM 3.8 mmol/L (3.5-5.1); SODIUM 145 mmol/L (135-144); TOTAL PROTEIN 5.9 g/dl (6.1-8.1)
[2018-03-11 10:07] LABS: ANION GAP 11 (8-16)
[2018-03-11 14:27] LABS: AADO2 Arterial 18.9 mmHg (7.0-24.0); Allen Test ACCEPTAB; Arterial Base Excess 16.1 mmol/L (-3.0-3); Arterial Blood Gas Oxygen Sat 96.4 mmHG (95.0-100.0); Arterial COHb 0.3 % (0.0-3.0); Arterial Fraction of Oxyhgb 95.7 % (93.0-99.0); Arterial HCO3 44.2 mmol/L (22.0-26.0); Arterial MetHb 0.4 % (0.0-1.5); Arterial Total Hemglobin 10.2 g/dl (12.0-18.0); Arterial pCO2 77.7 mmhg (35-45); MODE NASAL CANNULA; Site Left Radial
[2018-03-11] MEDS: ATORVASTATIN 40 MG TAB PO (20:36)
[2018-03-11] MEDS: MONTELUKAST 10 MG TAB PO (20:36)
[2018-03-11] MEDS: MIRTAZAPINE 15 MG TAB PO (20:37)
[2018-03-11] MEDS: DOXAZOSIN 4 MG TAB PO (20:37)
[2018-03-11] MEDS: DEXAMETHASONE 1 MG TAB PO (22:50)
[2018-03-12] MEDS: ALBUTEROL/IPRATROPIUM (NEB) 3 ML AMP NEB ×6 (00:08→20:05)
[2018-03-12] MEDS: TIOTROPIUM 18 MCG CAPSULE INHA DEV INH (08:44)
[2018-03-12] MEDS: FAMOTIDINE 20 MG INJ IV ×2 (08:44→20:21)
[2018-03-12] MEDS: FLUTICASONE/VILANTEROL 100-25 INH (08:44)
[2018-03-12] MEDS: GABAPENTIN 300 MG CAP PO ×3 (08:45→20:21)
[2018-03-12] MEDS: FINASTERIDE 5 MG TAB PO (08:45)
[2018-03-12] MEDS: CLOPIDOGREL 75 MG TAB PO (08:45)
[2018-03-12 12:01] LABS: ADD MAN DIFF? NO
[2018-03-12 12:10] LABS: WHITE BLOOD COUNT 3.9 10^3/ul (4.8-10.8)
[2018-03-12 12:10] LABS: BASOPHILS % 0.3 % (0.0-2.0); EOSINOPHILS # 0.2 10^3/ul (0.0-0.5); EOSINOPHILS % 3.8 % (0.0-7.0); HEMATOCRIT 31.6 % (42.0-52.0); HEMOGLOBIN 9.6 g/dl (14.0-18.0); LYMPHOCYTES # 0.8 10^3/ul (0.8-2.9); LYMPHOCYTES % 21.1 % (15.0-51.0); MEAN CORPUSCULAR HEMOGLOBIN 30.4 pg (29.0-33.0); MEAN CORPUSCULAR HGB CONC 30.4 g/dl (32.0-37.0); MEAN PLATELET VOLUME 11.2 fl (7.4-10.4); MONOCYTE # 0.4 10^3/ul (0.3-0.9); MONOCYTES % 9.4 % (0.0-11.0); NEUTROPHIL # 2.6 10^3/ul (1.6-7.5); NEUTROPHILS % 65.1 % (39.0-77.0); PLATELET COUNT 112 10^3/UL (140-415); POSITIVE DIFF @See below; RED BLOOD COUNT 3.16 10^6/ul (4.70-6.10)
[2018-03-12 12:39] LABS: ALANINE AMINOTRANSFERASE 16 IU/L (13-69); ALBUMIN 3.1 g/dl (3.3-4.9); ALKALINE PHOSPHATASE 52 IU/L (42-121); ASPARTATE AMINO TRANSFERASE 17 IU/L (15-46); BILIRUBIN,INDIRECT 0.4 mg/dl (0-1.1); BILIRUBIN,TOTAL 0.4 mg/dl (0.2-1.3); BLOOD UREA NITROGEN 14 mg/dl (7-20); CALCIUM 8.9 mg/dl (8.4-10.2); CHLORIDE 98 mmol/L (97-110); CREATININE 0.73 mg/dl (0.61-1.24); GLUCOSE 112 mg/dl (70-220); POTASSIUM 3.8 mmol/L (3.5-5.1); SODIUM 146 mmol/L (135-144); TOTAL PROTEIN 5.9 g/dl (6.1-8.1)
[2018-03-12 12:55] LABS: ANION GAP 10 (8-16)
[2018-03-12] MEDS: DOXAZOSIN 4 MG TAB PO (20:24)
[2018-03-12] MEDS: MONTELUKAST 10 MG TAB PO (20:24)
[2018-03-12] MEDS: ATORVASTATIN 40 MG TAB PO (20:24)
[2018-03-12] MEDS: MIRTAZAPINE 15 MG TAB PO (20:24)
[2018-03-13] MEDS: ALBUTEROL/IPRATROPIUM (NEB) 3 ML AMP NEB ×6 (01:00→16:21)
[2018-03-13] MEDS: TIOTROPIUM 18 MCG CAPSULE INHA DEV INH (09:00)
[2018-03-13] MEDS: GABAPENTIN 300 MG CAP PO ×2 (09:00→13:40)
[2018-03-13] MEDS: FLUTICASONE/VILANTEROL 100-25 INH (09:00)
[2018-03-13] MEDS: FAMOTIDINE 20 MG INJ IV (10:27)
[2018-03-13] MEDS: FINASTERIDE 5 MG TAB PO (10:28)
[2018-03-13] MEDS: CLOPIDOGREL 75 MG TAB PO (10:30)
== END 2018-03-13 16:51 | DRG 189 ==
LOC: E/R 15:42 → MS4 19:19
PROVIDERS: Internal Medicine
DX: J96.02 Acute respiratory failure with hypercapnia (principal); I50.43 Acute on chronic combined systolic (congestive) and diastolic (congestive) heart failure; E66.2 Morbid (severe) obesity with alveolar hypoventilation; E87.4 Mixed disorder of acid-base balance; I69.351 Hemiplegia and hemiparesis following cerebral infarction affecting right dominant side; J44.1 Chronic obstructive pulmonary disease with (acute) exacerbation; F32.0 Major depressive disorder, single episode, mild; D69.6 Thrombocytopenia, unspecified; C61 Malignant neoplasm of prostate; D64.9 Anemia, unspecified; I11.0 Hypertensive heart disease with heart failure; J96.01 Acute respiratory failure with hypoxia; K21.9 Gastro-esophageal reflux disease without esophagitis; I25.10 Atherosclerotic heart disease of native coronary artery without angina pectoris; N40.0 Benign prostatic hyperplasia without lower urinary tract symptoms; Z68.35 Body mass index [BMI] 35.0-35.9, adult; Z71.3 Dietary counseling and surveillance; Z87.891 Personal history of nicotine dependence
CPT/HCPCS: 36415; 36600; 70450; 71045; 80053; 82533; 82803; 83880; 84484; 85025; 93005; 94640; 94664; 97162; 99291-25

== ENCOUNTER 2018-09-26 15:18 | Inpatient (IN) | payer MEDICARE, OTHER ==
[2018-09-26] MEDS: SODIUM CHLORIDE 0.9% 1L BAG IV* (16:08)
[2018-09-26] MEDS: CEFEPIME 2GM/50 ML (PMX) 50 ML IVPB (16:11)
[2018-09-26 16:12] LABS: ADD MAN DIFF? NO
[2018-09-26 16:19] LABS: BASOPHILS % 0.4 % (0.0-2.0); EOSINOPHILS % 0.7 % (0.0-7.0); HEMATOCRIT 35.4 % (42.0-52.0); HEMOGLOBIN 10.5 g/dl (14.0-18.0); LYMPHOCYTES # 0.8 10^3/ul (0.8-2.9); LYMPHOCYTES % 13.8 % (15.0-51.0); MEAN CORPUSCULAR HEMOGLOBIN 29.7 pg (29.0-33.0); MEAN CORPUSCULAR HGB CONC 29.7 g/dl (32.0-37.0); MEAN CORPUSCULAR VOLUME 100.3 fl (82.0-101.0); MEAN PLATELET VOLUME 10.9 fl (7.4-10.4); MONOCYTE # 0.5 10^3/ul (0.3-0.9); MONOCYTES % 8.4 % (0.0-11.0); NEUTROPHIL # 4.2 10^3/ul (1.6-7.5); NEUTROPHILS % 76.1 % (39.0-77.0); PLATELET COUNT 123 10^3/UL (140-415); RED BLOOD COUNT 3.53 10^6/ul (4.70-6.10); RED CELL DISTRIBUTION WIDTH 12.8 % (11.5-14.5)
[2018-09-26 16:19] LABS: WHITE BLOOD COUNT 5.5 10^3/ul (4.8-10.8)
[2018-09-26 16:33] LABS: INR 0.94; PROTIME 12.7 Sec (11.9-14.9)
[2018-09-26 16:34] LABS: PARTIAL THROMBOPLASTIN TIME 32.4 Sec (23.0-35.0)
[2018-09-26 16:35] LABS: ALANINE AMINOTRANSFERASE 16 IU/L (13-69); ALBUMIN 3.5 g/dl (3.3-4.9); ALBUMIN/GLOBULIN RATIO 1.09; ALKALINE PHOSPHATASE 67 IU/L (42-121); ASPARTATE AMINO TRANSFERASE 19 IU/L (15-46); BILIRUBIN,INDIRECT 0.2 mg/dl (0-1.1); BILIRUBIN,TOTAL 0.2 mg/dl (0.2-1.3); BLOOD UREA NITROGEN 22 mg/dl (7-20); CALCIUM 9.7 mg/dl (8.4-10.2); CHLORIDE 92 mmol/L (97-110); CREATININE 0.54 mg/dl (0.61-1.24); GLUCOSE 111 mg/dl (70-220); POTASSIUM 4.3 mmol/L (3.5-5.1); SODIUM 141 mmol/L (135-144); TOTAL PROTEIN 6.7 g/dl (6.1-8.1)
[2018-09-26 16:43] LABS: ANION GAP 3 (5-13)
[2018-09-26 16:44] LABS: CARBON DIOXIDE 46 mmol/L (21-31)
[2018-09-26 16:47] LABS: TROPONIN-I < 0.012 ng/ml (0.000-0.120)
[2018-09-26 16:59] LABS: MODE NASAL CANNULA; MetHgb Venous 0.4 %; Sample Type Blood venous; Site VENOUS LINE; Venous COHb 0.6 %; Venous Fraction OxyHgb 93.9 %; Venous Oxygen Sat 94.8 mmHG (55.0-75.0); Venous Total Hemglobin 11.7 g/dl
[2018-09-26 17:10] LABS: ADD UMIC YES; UR ASCORBIC ACID NEGATIVE (NEGATIVE); UR BILIRUBIN (Dip) NEGATIVE (NEGATIVE); UR BLOOD (Dip) NEGATIVE (NEGATIVE); UR CLARITY CLEAR (CLEAR); UR COLOR YELLOW (YELLOW); UR GLUCOSE (Dip) NEGATIVE (NEGATIVE); UR KETONES (Dip) NEGATIVE (NEGATIVE); UR LEUKOCYTE ESTERASE (Dip) NEGATIVE Leu/ul (NEGATIVE); UR MUCUS FEW /HPF (NONE SEEN); UR NITRITE (Dip) NEGATIVE (NEGATIVE); UR RBC 3 /HPF (0-5); UR SPECIFIC GRAVITY (Dip) 1.021 (1.003-1.030); UR TOTAL PROTEIN (Dip) 1+ mg/dl (NEGATIVE); UR UROBILINOGEN (Dip) 2+ mg/dL (NEGATIVE); UR WBC 1 /HPF (0-5)
[2018-09-26 17:14] LABS: URINE BLOOD (Dip) POC Negative (NEGATIVE); URINE GLUCOSE (Dip) POC Negative (NEGATIVE); URINE KETONES (Dip) POC Trace (NEGATIVE); URINE LEUKOCYTE EST (Dip) POC Negative (NEGATIVE); URINE NITRITE (Dip) POC Negative (NEGATIVE); URINE TOTAL PROTEIN POC 1+ (NEGATIVE)
[2018-09-26] MEDS: VANCOMYCIN 1 GM (PMX) 250 ML IVPB (17:17)
[2018-09-26] MEDS ORDERED: ALBUTEROL/IPRATROPIUM (NEB) 3 ML AMP HHN (18:00)
[2018-09-26] MEDS ORDERED: ONDANSETRON 4 MG INJ IV (18:00)
[2018-09-26] MEDS: TIOTROPIUM 18 MCG CAPSULE INHA DEV INH (18:00)
[2018-09-26] MEDS ORDERED: ACETAMINOPHEN 325 MG TAB PO (18:00)
[2018-09-26 19:47] LABS: AADO2 Arterial 49.3 mmHg (7.0-24.0); Allen Test ACCEPTAB; Arterial Base Excess 15.9 mmol/L (-3.0-3); Arterial Blood Gas Oxygen Sat 93.5 mmHG (95.0-100.0); Arterial COHb 0.3 % (0.0-3.0); Arterial Fraction of Oxyhgb 92.9 % (93.0-99.0); Arterial HCO3 44.5 mmol/L (22.0-26.0); Arterial MetHb 0.3 % (0.0-1.5); Arterial pCO2 80.8 mmhg (35-45); Blood Gas IEPAP 15/5; MODE MASK - BIPAP; Site Left Radial
[2018-09-26] MEDS: DOXAZOSIN 4 MG TAB PO (23:28)
[2018-09-27] MEDS: CLOPIDOGREL 75 MG TAB PO (08:21)
[2018-09-27] MEDS: FAMOTIDINE 20 MG TAB PO (08:21)
[2018-09-27] MEDS: ATORVASTATIN 40 MG TAB PO (08:21)
[2018-09-27] MEDS: TIOTROPIUM 18 MCG CAPSULE INHA DEV INH (08:22)
[2018-09-27 12:13] LABS: MODE NASAL CANNULA; MetHgb Venous 0.4 %; Sample Type Blood venous; Site OTHER; Venous COHb 0.5 %; Venous Fraction OxyHgb 90.8 %; Venous Oxygen Sat 91.6 mmHG (55.0-75.0); Venous Total Hemglobin 12.3 g/dl
[2018-09-27 12:22] LABS: ADD MAN DIFF? NO
[2018-09-27 12:24] LABS: BASOPHILS % 0.3 % (0.0-2.0); EOSINOPHILS % 0.3 % (0.0-7.0); HEMOGLOBIN 10.9 g/dl (14.0-18.0); LYMPHOCYTES # 0.8 10^3/ul (0.8-2.9); LYMPHOCYTES % 13.3 % (15.0-51.0); MEAN CORPUSCULAR HEMOGLOBIN 30.2 pg (29.0-33.0); MEAN CORPUSCULAR HGB CONC 31.1 g/dl (32.0-37.0); MONOCYTE # 0.5 10^3/ul (0.3-0.9); MONOCYTES % 8.7 % (0.0-11.0); NEUTROPHIL # 4.6 10^3/ul (1.6-7.5); NEUTROPHILS % 77.1 % (39.0-77.0); PLATELET COUNT 131 10^3/UL (140-415); POSITIVE DIFF @See below; RED BLOOD COUNT 3.61 10^6/ul (4.70-6.10); RED CELL DISTRIBUTION WIDTH 12.5 % (11.5-14.5)
[2018-09-27 12:46] LABS: ALANINE AMINOTRANSFERASE 15 IU/L (13-69); ALBUMIN 3.5 g/dl (3.3-4.9); ALBUMIN/GLOBULIN RATIO 1.12; ALKALINE PHOSPHATASE 77 IU/L (42-121); ASPARTATE AMINO TRANSFERASE 20 IU/L (15-46); BILIRUBIN,INDIRECT 0.3 mg/dl (0-1.1); BILIRUBIN,TOTAL 0.3 mg/dl (0.2-1.3); BLOOD UREA NITROGEN 22 mg/dl (7-20); CALCIUM 9.8 mg/dl (8.4-10.2); CHLORIDE 94 mmol/L (97-110); CREATININE 0.48 mg/dl (0.61-1.24); GLUCOSE 113 mg/dl (70-220); POTASSIUM 3.6 mmol/L (3.5-5.1); SODIUM 141 mmol/L (135-144); TOTAL PROTEIN 6.6 g/dl (6.1-8.1)
[2018-09-27 13:04] LABS: ANION GAP 6 (5-13)
[2018-09-27 13:05] LABS: CARBON DIOXIDE 41 mmol/L (21-31)
[2018-09-27] MEDS: LISINOPRIL 20 MG TAB PO (14:47)
[2018-09-27] MEDS: DOXAZOSIN 4 MG TAB PO (21:19)
[2018-09-27] MEDS: HEPARIN 5,000 UNIT/1 ML VIAL SC (21:27)
[2018-09-28] MEDS: FAMOTIDINE 20 MG TAB PO (08:28)
[2018-09-28] MEDS: CLOPIDOGREL 75 MG TAB PO (08:28)
[2018-09-28] MEDS: ATORVASTATIN 40 MG TAB PO (08:28)
[2018-09-28] MEDS: TIOTROPIUM 18 MCG CAPSULE INHA DEV INH (08:28)
[2018-09-28] MEDS: LISINOPRIL 20 MG TAB PO ×2 (08:29→20:17)
[2018-09-28] MEDS: HEPARIN 5,000 UNIT/1 ML VIAL SC ×2 (08:34→20:30)
[2018-09-28] MEDS: CEFTRIAXONE 1 GM/50 ML (PMX) 50 ML IVPB (18:06)
[2018-09-28] MEDS: FUROSEMIDE 20 MG TAB PO (18:06)
[2018-09-28] MEDS: FOSFOMYCIN 3 GM PACKET PO (18:46)
[2018-09-28] MEDS: TESTOSTERONE CYPIONATE 200 MG/ML INJ IM (20:18)
[2018-09-28] MEDS: DOXAZOSIN 4 MG TAB PO (20:22)
[2018-09-28] MEDS: FLUTICASONE/VILANTEROL 200-25 INH DEVICE INH (20:45)
[2018-09-28] MEDS: THEOPHYLLINE (SR) 300 MG CAP PO (20:46)
[2018-09-29 05:44] LABS: AADO2 Arterial 51.4 mmHg (7.0-24.0); Allen Test ACCEPTAB; Arterial Base Excess 17.1 mmol/L (-3.0-3); Arterial Blood Gas Oxygen Sat 95.7 mmHG (95.0-100.0); Arterial COHb 0 % (0.0-3.0); Arterial Fraction of Oxyhgb 95.4 % (93.0-99.0); Arterial HCO3 43.1 mmol/L (22.0-26.0); Arterial MetHb 0.3 % (0.0-1.5); Arterial pCO2 59.4 mmhg (35-45); MODE NASAL CANNULA; Site Left Radial
[2018-09-29 06:53] LABS: ADD MAN DIFF? NO
[2018-09-29 07:00] LABS: WHITE BLOOD COUNT 3.8 10^3/ul (4.8-10.8)
[2018-09-29 07:00] LABS: BASOPHILS % 0.3 % (0.0-2.0); EOSINOPHILS # 0.1 10^3/ul (0.0-0.5); EOSINOPHILS % 1.6 % (0.0-7.0); HEMATOCRIT 30.5 % (42.0-52.0); HEMOGLOBIN 9.9 g/dl (14.0-18.0); LYMPHOCYTES # 0.8 10^3/ul (0.8-2.9); LYMPHOCYTES % 20.7 % (15.0-51.0); MEAN CORPUSCULAR HEMOGLOBIN 30.4 pg (29.0-33.0); MEAN CORPUSCULAR HGB CONC 32.5 g/dl (32.0-37.0); MEAN CORPUSCULAR VOLUME 93.6 fl (82.0-101.0); MEAN PLATELET VOLUME 11.1 fl (7.4-10.4); MONOCYTE # 0.5 10^3/ul (0.3-0.9); MONOCYTES % 12.8 % (0.0-11.0); NEUTROPHIL # 2.5 10^3/ul (1.6-7.5); NEUTROPHILS % 64.3 % (39.0-77.0); PLATELET COUNT 129 10^3/UL (140-415); RED BLOOD COUNT 3.26 10^6/ul (4.70-6.10); RED CELL DISTRIBUTION WIDTH 12.8 % (11.5-14.5)
[2018-09-29 07:31] LABS: MAGNESIUM 1.8 mg/dl (1.7-2.5)
[2018-09-29 07:36] LABS: ALANINE AMINOTRANSFERASE 20 IU/L (13-69); ALBUMIN 3.2 g/dl (3.3-4.9); ALKALINE PHOSPHATASE 63 IU/L (42-121); ASPARTATE AMINO TRANSFERASE 19 IU/L (15-46); BILIRUBIN,INDIRECT 0.4 mg/dl (0-1.1); BILIRUBIN,TOTAL 0.4 mg/dl (0.2-1.3); BLOOD UREA NITROGEN 15 mg/dl (7-20); CALCIUM 9.1 mg/dl (8.4-10.2); CHLORIDE 92 mmol/L (97-110); CREATININE 0.54 mg/dl (0.61-1.24); GLUCOSE 97 mg/dl (70-220); SODIUM 142 mmol/L (135-144); TOTAL PROTEIN 6.1 g/dl (6.1-8.1)
[2018-09-29 07:44] LABS: ANION GAP 10 (5-13)
[2018-09-29 07:57] LABS: POTASSIUM 2.6 mmol/L (3.5-5.1)
[2018-09-29 07:58] LABS: CARBON DIOXIDE 40 mmol/L (21-31)
[2018-09-29] MEDS: CLOPIDOGREL 75 MG TAB PO (08:12)
[2018-09-29] MEDS: TIOTROPIUM 18 MCG CAPSULE INHA DEV INH (08:12)
[2018-09-29] MEDS: FLUTICASONE/VILANTEROL 200-25 INH DEVICE INH (08:12)
[2018-09-29] MEDS: FAMOTIDINE 20 MG TAB PO (08:12)
[2018-09-29] MEDS: ATORVASTATIN 40 MG TAB PO (08:12)
[2018-09-29] MEDS: LISINOPRIL 20 MG TAB PO ×2 (08:14→20:18)
[2018-09-29] MEDS: HEPARIN 5,000 UNIT/1 ML VIAL SC ×2 (08:17→20:52)
[2018-09-29] MEDS: POTASSIUM CHLORIDE (SR) 20 MEQ TAB PO (08:50)
[2018-09-29] MEDS: FUROSEMIDE 20 MG TAB PO (08:50)
[2018-09-29] MEDS: POTASSIUM CHLORIDE 100 ML IVPB ×4 (09:42→16:41)
[2018-09-29] MEDS: MAGNESIUM SULFATE 2 GM/50 ML 50 ML IVPB (14:35)
[2018-09-29] MEDS: ACETAZOLAMIDE 250 MG TAB PO ×2 (15:27→20:18)
[2018-09-29] MEDS: CEFTRIAXONE 1 GM/50 ML (PMX) 50 ML IVPB (18:15)
[2018-09-29] MEDS: DOXAZOSIN 4 MG TAB PO (20:18)
[2018-09-29] MEDS: BALSAM PERU/CASTOR OIL 60 GM TUBE TOP (20:19)
[2018-09-29] MEDS: THEOPHYLLINE (SR) 300 MG CAP PO (20:19)
[2018-09-30] MEDS: ATORVASTATIN 40 MG TAB PO (08:04)
[2018-09-30] MEDS: FAMOTIDINE 20 MG TAB PO (08:04)
[2018-09-30] MEDS: ACETAZOLAMIDE 250 MG TAB PO (08:05)
[2018-09-30] MEDS: CLOPIDOGREL 75 MG TAB PO (08:05)
[2018-09-30] MEDS: LISINOPRIL 20 MG TAB PO ×2 (08:05→21:09)
[2018-09-30] MEDS: FUROSEMIDE 20 MG TAB PO (08:05)
[2018-09-30] MEDS: TIOTROPIUM 18 MCG CAPSULE INHA DEV INH (08:06)
[2018-09-30] MEDS: FLUTICASONE/VILANTEROL 200-25 INH DEVICE INH (08:06)
[2018-09-30] MEDS: BALSAM PERU/CASTOR OIL 60 GM TUBE TOP ×2 (08:06→21:09)
[2018-09-30] MEDS: HEPARIN 5,000 UNIT/1 ML VIAL SC ×2 (08:20→21:18)
[2018-09-30 08:52] LABS: ANION GAP 7 (5-13); BLOOD UREA NITROGEN 12 mg/dl (7-20); CALCIUM 9.4 mg/dl (8.4-10.2); CARBON DIOXIDE 37 mmol/L (21-31); CHLORIDE 98 mmol/L (97-110); GLUCOSE 93 mg/dl (70-220); POTASSIUM 3.3 mmol/L (3.5-5.1); SODIUM 142 mmol/L (135-144)
[2018-09-30] MEDS: POTASSIUM CHLORIDE (SR) 20 MEQ TAB PO ×2 (14:34→17:31)
[2018-09-30] MEDS: CEFTRIAXONE 1 GM/50 ML (PMX) 50 ML IVPB (17:34)
[2018-09-30] MEDS: DOXAZOSIN 4 MG TAB PO (21:08)
[2018-09-30] MEDS: THEOPHYLLINE (SR) 300 MG TAB PO (21:13)
[2018-10-01 06:58] LABS: ANION GAP 7 (5-13); BLOOD UREA NITROGEN 14 mg/dl (7-20); CALCIUM 10.2 mg/dl (8.4-10.2); CARBON DIOXIDE 32 mmol/L (21-31); CHLORIDE 102 mmol/L (97-110); CREATININE 0.76 mg/dl (0.61-1.24); GLUCOSE 94 mg/dl (70-220); POTASSIUM 3.9 mmol/L (3.5-5.1); SODIUM 141 mmol/L (135-144)
[2018-10-01] MEDS: CLOPIDOGREL 75 MG TAB PO (08:18)
[2018-10-01] MEDS: FUROSEMIDE 20 MG TAB PO (08:18)
[2018-10-01] MEDS: FAMOTIDINE 20 MG TAB PO (08:18)
[2018-10-01] MEDS: ACETAZOLAMIDE 250 MG TAB PO (08:18)
[2018-10-01] MEDS: ATORVASTATIN 40 MG TAB PO (08:19)
[2018-10-01] MEDS: BALSAM PERU/CASTOR OIL 60 GM TUBE TOP ×2 (08:19→21:00)
[2018-10-01] MEDS: LISINOPRIL 20 MG TAB PO ×2 (08:19→21:00)
[2018-10-01] MEDS: FLUTICASONE/VILANTEROL 200-25 INH DEVICE INH (08:20)
[2018-10-01] MEDS: TIOTROPIUM 18 MCG CAPSULE INHA DEV INH (08:20)
[2018-10-01] MEDS: HEPARIN 5,000 UNIT/1 ML VIAL SC ×2 (08:31→21:00)
[2018-10-01] MEDS: CEFTRIAXONE 1 GM/50 ML (PMX) 50 ML IVPB (17:03)
[2018-10-01] MEDS: DOXAZOSIN 4 MG TAB PO (21:00)
[2018-10-01] MEDS: THEOPHYLLINE (SR) 300 MG TAB PO (21:00)
[2018-10-02] MEDS ORDERED: ACETAZOLAMIDE 250 MG TAB PO (09:00)
== END 2018-10-01 21:25 | disposition home health service (06) | DRG 189 ==
LOC: E/R 15:18 → TEL 17:48
DX: J96.22 Acute and chronic respiratory failure with hypercapnia (principal); I50.33 Acute on chronic diastolic (congestive) heart failure; G93.40 Encephalopathy, unspecified; I69.951 Hemiplegia and hemiparesis following unspecified cerebrovascular disease affecting right dominant side; N39.0 Urinary tract infection, site not specified; E87.4 Mixed disorder of acid-base balance; Z68.43 Body mass index [BMI] 50.0-59.9, adult; E66.2 Morbid (severe) obesity with alveolar hypoventilation; G47.33 Obstructive sleep apnea (adult) (pediatric); K21.9 Gastro-esophageal reflux disease without esophagitis; I25.10 Atherosclerotic heart disease of native coronary artery without angina pectoris; I11.0 Hypertensive heart disease with heart failure; J44.9 Chronic obstructive pulmonary disease, unspecified; E78.5 Hyperlipidemia, unspecified; E87.6 Hypokalemia; E55.9 Vitamin D deficiency, unspecified; Z85.46 Personal history of malignant neoplasm of prostate; B96.4 Proteus (mirabilis) (morganii) as the cause of diseases classified elsewhere
CPT/HCPCS: 36415; 36600; 70450; 71045; 80048; 80053; 81001; 81003; 82803; 83605; 83735; 84484; 85025; 85610; 85730; 87040; 87086; 93005; 94660; 96374; 96375; 97162; 99291-25

== ENCOUNTER 2018-10-04 09:59 | Inpatient (IN) | payer MEDICARE, OTHER ==
[2018-10-04 10:44] LABS: ADD MAN DIFF? NO
[2018-10-04 10:47] LABS: WHITE BLOOD COUNT 7.6 10^3/ul (4.8-10.8)
[2018-10-04 10:47] LABS: BASOPHILS % 0.3 % (0.0-2.0); EOSINOPHILS # 0.1 10^3/ul (0.0-0.5); EOSINOPHILS % 1.7 % (0.0-7.0); HEMATOCRIT 37.3 % (42.0-52.0); HEMOGLOBIN 11.4 g/dl (14.0-18.0); LYMPHOCYTES # 1.2 10^3/ul (0.8-2.9); LYMPHOCYTES % 15.1 % (15.0-51.0); MEAN CORPUSCULAR HEMOGLOBIN 30.6 pg (29.0-33.0); MEAN CORPUSCULAR HGB CONC 30.6 g/dl (32.0-37.0); MEAN CORPUSCULAR VOLUME 100.3 fl (82.0-101.0); MEAN PLATELET VOLUME 11.4 fl (7.4-10.4); MONOCYTE # 0.6 10^3/ul (0.3-0.9); MONOCYTES % 7.6 % (0.0-11.0); NEUTROPHIL # 5.7 10^3/ul (1.6-7.5); NEUTROPHILS % 74.9 % (39.0-77.0); PLATELET COUNT 192 10^3/UL (140-415); RED BLOOD COUNT 3.72 10^6/ul (4.70-6.10); RED CELL DISTRIBUTION WIDTH 14.3 % (11.5-14.5)
[2018-10-04] MEDS: SODIUM CHLORIDE 0.9% 1L BAG IV* (10:58)
[2018-10-04 11:06] LABS: INR 0.86; PROTIME 11.8 Sec (11.9-14.9); PT RATIO 0.9
[2018-10-04 11:07] LABS: PARTIAL THROMBOPLASTIN TIME 28.1 Sec (23.0-35.0)
[2018-10-04 11:11] LABS: ALANINE AMINOTRANSFERASE 16 IU/L (13-69); ALBUMIN/GLOBULIN RATIO 1.21; ALKALINE PHOSPHATASE 70 IU/L (42-121); ANION GAP 8 (5-13); ASPARTATE AMINO TRANSFERASE 21 IU/L (15-46); BLOOD UREA NITROGEN 29 mg/dl (7-20); CALCIUM 9.9 mg/dl (8.4-10.2); CARBON DIOXIDE 33 mmol/L (21-31); CHLORIDE 102 mmol/L (97-110); CREATININE 1.23 mg/dl (0.61-1.24); GLUCOSE 129 mg/dl (70-220); POTASSIUM 4.2 mmol/L (3.5-5.1); SODIUM 143 mmol/L (135-144); TOTAL PROTEIN 7.3 g/dl (6.1-8.1)
[2018-10-04 11:22] LABS: TROPONIN-I < 0.012 ng/ml (0.000-0.120)
[2018-10-04] MEDS: SOD CHLORIDE 0.9% 1,000 ML IV (13:15)
[2018-10-04] MEDS: LEVOFLOXACIN 750MG/D5W (PMX) 150 ML IVPB (13:15)
[2018-10-04 15:13] LABS: LACTIC ACID 0.8 mmol/L (0.5-2.0)
[2018-10-04] MEDS: HYDROCODONE/APAP (5/325) TAB PO (15:41)
[2018-10-04] MEDS: SOD CHLORIDE 0.9% 500 ML IV (17:45)
[2018-10-04] MEDS ORDERED: ONDANSETRON 4 MG INJ IV (20:00)
[2018-10-04] MEDS ORDERED: ACETAMINOPHEN 325 MG TAB PO ×2 (20:00→23:00)
[2018-10-04] MEDS ORDERED: NITROGLYCERIN (SL) 0.4 MG TAB SL (23:00)
[2018-10-04] MEDS ORDERED: LORAZEPAM 0.5 MG TAB PO (23:00)
[2018-10-04] MEDS ORDERED: HYDROCODONE/APAP (5/325) TAB PO (23:00)
[2018-10-04] MEDS ORDERED: NACL 0.9% 3 ML SYG IV (23:00)
[2018-10-04] MEDS ORDERED: MAGNESIUM HYDROXIDE 30ML CUP PO (23:00)
[2018-10-04] MEDS: LACTATED RINGER'S 500 ML IV (23:37)
[2018-10-05 06:23] LABS: ADD MAN DIFF? NO
[2018-10-05 06:30] LABS: WHITE BLOOD COUNT 12.4 10^3/ul (4.8-10.8)
[2018-10-05 06:30] LABS: BASOPHILS % 0.1 % (0.0-2.0); EOSINOPHILS # 0.1 10^3/ul (0.0-0.5); EOSINOPHILS % 0.8 % (0.0-7.0); HEMATOCRIT 32.7 % (42.0-52.0); HEMOGLOBIN 9.8 g/dl (14.0-18.0); LYMPHOCYTES # 1.1 10^3/ul (0.8-2.9); LYMPHOCYTES % 9.1 % (15.0-51.0); MEAN CORPUSCULAR HEMOGLOBIN 30.4 pg (29.0-33.0); MEAN CORPUSCULAR VOLUME 101.6 fl (82.0-101.0); MONOCYTE # 0.8 10^3/ul (0.3-0.9); MONOCYTES % 6.6 % (0.0-11.0); NEUTROPHIL # 10.3 10^3/ul (1.6-7.5); NEUTROPHILS % 83.1 % (39.0-77.0); PLATELET COUNT 154 10^3/UL (140-415); RED BLOOD COUNT 3.22 10^6/ul (4.70-6.10); RED CELL DISTRIBUTION WIDTH 14.5 % (11.5-14.5)
[2018-10-05 06:54] LABS: ALANINE AMINOTRANSFERASE 23 IU/L (13-69); ALBUMIN 3.3 g/dl (3.3-4.9); ALBUMIN/GLOBULIN RATIO 1.32; ALKALINE PHOSPHATASE 71 IU/L (42-121); ANION GAP 3 (5-13); ASPARTATE AMINO TRANSFERASE 13 IU/L (15-46); BLOOD UREA NITROGEN 28 mg/dl (7-20); CALCIUM 9.5 mg/dl (8.4-10.2); CARBON DIOXIDE 33 mmol/L (21-31); CHLORIDE 104 mmol/L (97-110); CREATININE 1.07 mg/dl (0.61-1.24); GLUCOSE 103 mg/dl (70-220); POTASSIUM 4.4 mmol/L (3.5-5.1); SODIUM 140 mmol/L (135-144); TOTAL PROTEIN 5.8 g/dl (6.1-8.1)
[2018-10-05 07:22] LABS: HEMOGLOBIN A1C 5.4 % (0-5.9)
[2018-10-05] MEDS: ACETAZOLAMIDE 250 MG TAB PO (09:00)
[2018-10-05] MEDS: BENAZEPRIL 40 MG TAB PO (09:00)
[2018-10-05] MEDS: TIOTROPIUM 18 MCG CAPSULE INHA DEV INH (09:51)
[2018-10-05] MEDS: ASPIRIN 81 MG TAB PO (09:52)
[2018-10-05] MEDS: CLOPIDOGREL 75 MG TAB PO (09:52)
[2018-10-05] MEDS: FINASTERIDE 5 MG TAB PO (09:52)
[2018-10-05] MEDS: FLUTICASONE/VILANTEROL 200-25 INH DEVICE INH (09:52)
[2018-10-05] MEDS: GABAPENTIN 300 MG CAP PO ×3 (09:52→21:13)
[2018-10-05] MEDS: FAMOTIDINE 20 MG TAB PO ×2 (09:52→21:13)
[2018-10-05] MEDS: HEPARIN 5,000 UNIT/1 ML VIAL SC ×2 (10:35→21:30)
[2018-10-05] MEDS ORDERED: DOXAZOSIN 4 MG TAB PO (21:00)
[2018-10-05] MEDS: ATORVASTATIN 40 MG TAB PO (21:12)
[2018-10-05] MEDS: MONTELUKAST 10 MG TAB PO (21:12)
[2018-10-05] MEDS: THEOPHYLLINE (SR) 300 MG CAP PO (21:13)
[2018-10-05] MEDS: TAMSULOSIN (SR) 0.4 MG CAP PO (21:13)
[2018-10-05] MEDS: LORAZEPAM 1 MG TAB PO (21:13)
[2018-10-06 05:10] LABS: AADO2 Arterial 70.6 mmHg (7.0-24.0); Allen Test ACCEPTAB; Arterial Base Excess 4.9 mmol/L (-3.0-3); Arterial Blood Gas Oxygen Sat 98.5 mmHG (95.0-100.0); Arterial COHb 0.3 % (0.0-3.0); Arterial Fraction of Oxyhgb 97.8 % (93.0-99.0); Arterial HCO3 33.1 mmol/L (22.0-26.0); Arterial MetHb 0.4 % (0.0-1.5); Arterial pCO2 72.3 mmhg (35-45); Blood Gas IEPAP 15/6; MODE MASK - BIPAP; Site Right Radial
[2018-10-06 06:10] LABS: ADD MAN DIFF? NO
[2018-10-06 06:31] LABS: BASOPHILS % 0.2 % (0.0-2.0); EOSINOPHILS # 0.1 10^3/ul (0.0-0.5); EOSINOPHILS % 1.5 % (0.0-7.0); HEMATOCRIT 34.9 % (42.0-52.0); HEMOGLOBIN 10.4 g/dl (14.0-18.0); LYMPHOCYTES # 0.8 10^3/ul (0.8-2.9); LYMPHOCYTES % 14.1 % (15.0-51.0); MEAN CORPUSCULAR HEMOGLOBIN 30.1 pg (29.0-33.0); MEAN CORPUSCULAR HGB CONC 29.8 g/dl (32.0-37.0); MEAN CORPUSCULAR VOLUME 101.2 fl (82.0-101.0); MONOCYTE # 0.5 10^3/ul (0.3-0.9); MONOCYTES % 8.6 % (0.0-11.0); NEUTROPHIL # 4.5 10^3/ul (1.6-7.5); NEUTROPHILS % 75.3 % (39.0-77.0); PLATELET COUNT 182 10^3/UL (140-415); RED BLOOD COUNT 3.45 10^6/ul (4.70-6.10); RED CELL DISTRIBUTION WIDTH 14.3 % (11.5-14.5)
[2018-10-06 06:57] LABS: MAGNESIUM 2.2 mg/dl (1.7-2.5)
[2018-10-06 07:10] LABS: ANION GAP 3 (5-13); BLOOD UREA NITROGEN 23 mg/dl (7-20); CALCIUM 9.6 mg/dl (8.4-10.2); CARBON DIOXIDE 35 mmol/L (21-31); CHLORIDE 102 mmol/L (97-110); CREATININE 0.79 mg/dl (0.61-1.24); GLUCOSE 105 mg/dl (70-220); POTASSIUM 4.4 mmol/L (3.5-5.1); SODIUM 140 mmol/L (135-144)
[2018-10-06] MEDS: GABAPENTIN 300 MG CAP PO ×3 (09:09→20:38)
[2018-10-06] MEDS: FAMOTIDINE 20 MG TAB PO ×2 (09:24→20:38)
[2018-10-06] MEDS: TIOTROPIUM 18 MCG CAPSULE INHA DEV INH (09:25)
[2018-10-06] MEDS: CLOPIDOGREL 75 MG TAB PO (09:26)
[2018-10-06] MEDS: ACETAZOLAMIDE 250 MG TAB PO (09:26)
[2018-10-06] MEDS: FINASTERIDE 5 MG TAB PO (09:26)
[2018-10-06] MEDS: ASPIRIN 81 MG TAB PO (09:26)
[2018-10-06] MEDS: FLUTICASONE/VILANTEROL 200-25 INH DEVICE INH (09:27)
[2018-10-06] MEDS: HEPARIN 5,000 UNIT/1 ML VIAL SC ×2 (09:29→20:50)
[2018-10-06] MEDS: BENAZEPRIL 40 MG TAB PO (09:32)
[2018-10-06] MEDS: HYDROCODONE/APAP (5/325) TAB PO ×2 (09:48→17:45)
[2018-10-06] MEDS: ATORVASTATIN 40 MG TAB PO (20:38)
[2018-10-06] MEDS: MONTELUKAST 10 MG TAB PO (20:38)
[2018-10-06] MEDS: LORAZEPAM 1 MG TAB PO (20:38)
[2018-10-06] MEDS: TAMSULOSIN (SR) 0.4 MG CAP PO (20:38)
[2018-10-06] MEDS: THEOPHYLLINE (SR) 300 MG CAP PO (20:39)
[2018-10-07] MEDS: ACETAZOLAMIDE 250 MG TAB PO (08:56)
[2018-10-07] MEDS: CLOPIDOGREL 75 MG TAB PO (08:57)
[2018-10-07] MEDS: BENAZEPRIL 40 MG TAB PO (08:57)
[2018-10-07] MEDS: GABAPENTIN 300 MG CAP PO ×3 (08:57→20:24)
[2018-10-07] MEDS: FAMOTIDINE 20 MG TAB PO ×2 (08:58→20:24)
[2018-10-07] MEDS: FINASTERIDE 5 MG TAB PO (08:58)
[2018-10-07] MEDS: ASPIRIN 81 MG TAB PO (08:58)
[2018-10-07] MEDS: FLUTICASONE/VILANTEROL 200-25 INH DEVICE INH (08:59)
[2018-10-07] MEDS: TIOTROPIUM 18 MCG CAPSULE INHA DEV INH (08:59)
[2018-10-07] MEDS: HEPARIN 5,000 UNIT/1 ML VIAL SC ×2 (09:07→20:30)
[2018-10-07] MEDS: HYDROCODONE/APAP (5/325) TAB PO ×2 (09:46→17:21)
[2018-10-07] MEDS: LORAZEPAM 1 MG TAB PO (20:23)
[2018-10-07] MEDS: ATORVASTATIN 40 MG TAB PO (20:23)
[2018-10-07] MEDS: TAMSULOSIN (SR) 0.4 MG CAP PO (20:24)
[2018-10-07] MEDS: THEOPHYLLINE (SR) 300 MG CAP PO (20:24)
[2018-10-07] MEDS: MONTELUKAST 10 MG TAB PO (20:25)
[2018-10-08] MEDS: ACETAZOLAMIDE 250 MG TAB PO (09:06)
[2018-10-08] MEDS: FLUTICASONE/VILANTEROL 200-25 INH DEVICE INH (09:06)
[2018-10-08] MEDS: FINASTERIDE 5 MG TAB PO (09:06)
[2018-10-08] MEDS: GABAPENTIN 300 MG CAP PO ×3 (09:06→20:23)
[2018-10-08] MEDS: CLOPIDOGREL 75 MG TAB PO (09:06)
[2018-10-08] MEDS: FAMOTIDINE 20 MG TAB PO ×2 (09:06→20:23)
[2018-10-08] MEDS: ASPIRIN 81 MG TAB PO (09:06)
[2018-10-08] MEDS: TIOTROPIUM 18 MCG CAPSULE INHA DEV INH (09:06)
[2018-10-08] MEDS: BENAZEPRIL 40 MG TAB PO (09:09)
[2018-10-08] MEDS: HEPARIN 5,000 UNIT/1 ML VIAL SC ×2 (09:15→20:39)
[2018-10-08] MEDS: CLONIDINE 0.1 MG/24 HR PATCH TRANSDERM (09:47)
[2018-10-08] MEDS: HYDROCODONE/APAP (5/325) TAB PO ×2 (09:47→16:05)
[2018-10-08] MEDS: TAMSULOSIN (SR) 0.4 MG CAP PO (20:22)
[2018-10-08] MEDS: MONTELUKAST 10 MG TAB PO (20:22)
[2018-10-08] MEDS: ATORVASTATIN 40 MG TAB PO (20:22)
[2018-10-08] MEDS: THEOPHYLLINE (SR) 300 MG CAP PO (20:23)
[2018-10-08] MEDS: LORAZEPAM 1 MG TAB PO (20:27)
== END 2018-10-08 21:30 | disposition home health service (06) | DRG 315 ==
LOC: TEL 10-07 07:55 → E/R 09:59 → TEL 19:42
DX: I95.9 Hypotension, unspecified (principal); E87.4 Mixed disorder of acid-base balance; I50.32 Chronic diastolic (congestive) heart failure; I69.951 Hemiplegia and hemiparesis following unspecified cerebrovascular disease affecting right dominant side; J96.12 Chronic respiratory failure with hypercapnia; E66.2 Morbid (severe) obesity with alveolar hypoventilation; I11.0 Hypertensive heart disease with heart failure; E86.0 Dehydration; C61 Malignant neoplasm of prostate; I50.9 Heart failure, unspecified; J44.9 Chronic obstructive pulmonary disease, unspecified; I25.10 Atherosclerotic heart disease of native coronary artery without angina pectoris; K21.9 Gastro-esophageal reflux disease without esophagitis; E78.5 Hyperlipidemia, unspecified; N40.0 Benign prostatic hyperplasia without lower urinary tract symptoms; Z68.34 Body mass index [BMI] 34.0-34.9, adult
CPT/HCPCS: 36415; 36600; 71045; 80048; 80053; 82803; 83036; 83605; 83735; 84484; 85025; 85610; 85730; 87040; 87081; 93005; 94660; 96374; 99285-25; G0378

== ENCOUNTER 2018-10-13 01:57 | Emergency (ER) | payer MEDICARE, OTHER ==
[2018-10-13] MEDS: SOD CHLORIDE 0.9% 1,000 ML IV (04:15)
[2018-10-13 04:49] LABS: ADD MAN DIFF? NO
[2018-10-13 04:51] LABS: BASOPHILS % 0.3 % (0.0-2.0); EOSINOPHILS # 0.1 10^3/ul (0.0-0.5); EOSINOPHILS % 1.8 % (0.0-7.0); HEMATOCRIT 36.3 % (42.0-52.0); HEMOGLOBIN 10.7 g/dl (14.0-18.0); LYMPHOCYTES # 1.1 10^3/ul (0.8-2.9); LYMPHOCYTES % 17.2 % (15.0-51.0); MEAN CORPUSCULAR HEMOGLOBIN 30.1 pg (29.0-33.0); MEAN CORPUSCULAR HGB CONC 29.5 g/dl (32.0-37.0); MEAN CORPUSCULAR VOLUME 102.3 fl (82.0-101.0); MEAN PLATELET VOLUME 10.2 fl (7.4-10.4); MONOCYTE # 0.6 10^3/ul (0.3-0.9); MONOCYTES % 9.6 % (0.0-11.0); NEUTROPHIL # 4.4 10^3/ul (1.6-7.5); NEUTROPHILS % 70.8 % (39.0-77.0); PLATELET COUNT 191 10^3/UL (140-415); RED BLOOD COUNT 3.55 10^6/ul (4.70-6.10); RED CELL DISTRIBUTION WIDTH 14.4 % (11.5-14.5)
[2018-10-13 04:51] LABS: WHITE BLOOD COUNT 6.3 10^3/ul (4.8-10.8)
[2018-10-13 05:08] LABS: BLOOD UREA NITROGEN 18 mg/dl (7-20); CALCIUM 9.8 mg/dl (8.4-10.2); CHLORIDE 97 mmol/L (97-110); CREATININE 0.77 mg/dl (0.61-1.24); GLUCOSE 115 mg/dl (70-220); POTASSIUM 4.4 mmol/L (3.5-5.1); SODIUM 145 mmol/L (135-144)
[2018-10-13 05:15] LABS: ANION GAP 10 (5-13)
[2018-10-13 05:20] LABS: CARBON DIOXIDE 38 mmol/L (21-31); TROPONIN-I < 0.012 ng/ml (0.000-0.120)
[2018-10-17 00:23] LABS: ADD MAN DIFF? NO
[2018-10-17 00:26] LABS: BASOPHILS % 0.3 % (0.0-2.0); EOSINOPHILS # 0.2 10^3/ul (0.0-0.5); EOSINOPHILS % 2.5 % (0.0-7.0); HEMATOCRIT 36.4 % (42.0-52.0); HEMOGLOBIN 11.1 g/dl (14.0-18.0); LYMPHOCYTES # 1.4 10^3/ul (0.8-2.9); LYMPHOCYTES % 21.6 % (15.0-51.0); MEAN CORPUSCULAR HEMOGLOBIN 29.9 pg (29.0-33.0); MEAN CORPUSCULAR HGB CONC 30.5 g/dl (32.0-37.0); MEAN CORPUSCULAR VOLUME 98.1 fl (82.0-101.0); MEAN PLATELET VOLUME 10.2 fl (7.4-10.4); MONOCYTE # 0.5 10^3/ul (0.3-0.9); MONOCYTES % 8.3 % (0.0-11.0); NEUTROPHIL # 4.3 10^3/ul (1.6-7.5); NEUTROPHILS % 67.1 % (39.0-77.0); PLATELET COUNT 139 10^3/UL (140-415); RED BLOOD COUNT 3.71 10^6/ul (4.70-6.10); RED CELL DISTRIBUTION WIDTH 13.7 % (11.5-14.5)
[2018-10-17 00:26] LABS: WHITE BLOOD COUNT 6.5 10^3/ul (4.8-10.8)
[2018-10-17 00:43] LABS: ALANINE AMINOTRANSFERASE 13 IU/L (13-69); ALBUMIN 3.6 g/dl (3.3-4.9); ALBUMIN/GLOBULIN RATIO 1.16; ALKALINE PHOSPHATASE 72 IU/L (42-121); ASPARTATE AMINO TRANSFERASE 16 IU/L (15-46); BILIRUBIN,INDIRECT 0.2 mg/dl (0-1.1); BILIRUBIN,TOTAL 0.2 mg/dl (0.2-1.3); BLOOD UREA NITROGEN 21 mg/dl (7-20); CALCIUM 9.8 mg/dl (8.4-10.2); CHLORIDE 100 mmol/L (97-110); GLUCOSE 105 mg/dl (70-220); POTASSIUM 4.2 mmol/L (3.5-5.1); SODIUM 141 mmol/L (135-144); TOTAL PROTEIN 6.7 g/dl (6.1-8.1)
[2018-10-17 00:49] LABS: ANION GAP 2 (5-13)
[2018-10-17 00:51] LABS: CARBON DIOXIDE 39 mmol/L (21-31)
[2018-10-17 00:54] LABS: TROPONIN-I < 0.012 ng/ml (0.000-0.120)
== END 2018-10-13 08:38 | disposition home or self-care (01) ==
LOC: E/R 01:57
DX: M79.641 Pain in right hand (principal); I95.9 Hypotension, unspecified; D53.9 Nutritional anemia, unspecified; E87.3 Alkalosis; G81.91 Hemiplegia, unspecified affecting right dominant side; I11.0 Hypertensive heart disease with heart failure; I50.9 Heart failure, unspecified; J44.9 Chronic obstructive pulmonary disease, unspecified; E66.01 Morbid (severe) obesity due to excess calories; R40.2252 Coma scale, best verbal response, oriented, at arrival to emergency department; R40.2362 Coma scale, best motor response, obeys commands, at arrival to emergency department; R40.2142 Coma scale, eyes open, spontaneous, at arrival to emergency department; Z86.73 Personal history of transient ischemic attack (TIA), and cerebral infarction without residual deficits; Z79.82 Long term (current) use of aspirin; Z79.01 Long term (current) use of anticoagulants; Z68.34 Body mass index [BMI] 34.0-34.9, adult
CPT/HCPCS: 36415; 70450; 71045; 73130-RT; 80048; 84484; 85025; 93005; 99285-25

== ENCOUNTER 2018-10-17 00:01 | Emergency (ER) | payer MEDICARE, OTHER ==
[2018-10-17 00:59] LABS: INR 0.89; PROTIME 12.1 Sec (11.9-14.9); PT RATIO 0.9
== END 2018-10-17 04:30 | disposition home or self-care (01) ==
LOC: E/R 00:01
DX: M79.641 Pain in right hand (principal); J44.9 Chronic obstructive pulmonary disease, unspecified; I50.9 Heart failure, unspecified; I11.0 Hypertensive heart disease with heart failure; Z79.01 Long term (current) use of anticoagulants; Z79.82 Long term (current) use of aspirin; Z86.73 Personal history of transient ischemic attack (TIA), and cerebral infarction without residual deficits
CPT/HCPCS: 73130; 73130-RT; 85610; 93005; 99285-25

== ENCOUNTER 2018-10-18 01:39 | Emergency (ER) | payer MEDICARE, OTHER ==
[2018-10-18] MEDS: ACETAMINOPHEN 500 MG TAB PO (01:55)
== END 2018-10-18 08:00 | disposition home or self-care (01) ==
LOC: E/R 08:00
DX: M79.641 Pain in right hand (principal); J44.9 Chronic obstructive pulmonary disease, unspecified; I50.9 Heart failure, unspecified; I11.0 Hypertensive heart disease with heart failure; Z79.01 Long term (current) use of anticoagulants; Z79.82 Long term (current) use of aspirin; Z86.73 Personal history of transient ischemic attack (TIA), and cerebral infarction without residual deficits
CPT/HCPCS: 99282